=== PATIENT | male | born 1965 | race Caucasian/White ===

== ENCOUNTER → 2017-07-15 11:10 | Outpatient (CLI) | payer BC, SELFPAY ==
--- NOTE | 2017-07-15 12:53 | STRESSREP ---
Stress Test Report Treadmill EKG results: Resting EKG: Normal sinus rhythm, normal axis, normal intervals, no evidence of previous myocardial infarction. Treadmill EKG: The patient exercise according to a Bernardino protocol for 9 minutes and 0 seconds, achieving a maximum workload of 10.10 mets. Resting heart rate was initially 62 beats a minute and raven to maximum 151 beats a minute which represents 89% of the maximal age corrected heart rate. Resting blood pressure is 146/94, and raven to maximum 192/86. Test was terminated due to leg discomfort. During exercise the patient's heart rate increased as expected. The patient had no dynamic EKG changes to suggest ischemia. Patient had rare PVCs noted. No anginal symptoms noted. Conclusions: Normal adequate treadmill EKG. Negative for ischemia by EKG criteria. No anginal symptoms noted. Rare PVCs noted. Appropriate blood pressure response to exercise. Average exercise capacity for age. Test terminated due to leg discomfort. No complications.
== END ==
DX: R07.9 Chest pain, unspecified (principal)
CPT/HCPCS: 93017

== ENCOUNTER → 2017-08-30 06:44 | Outpatient (CLI) | payer BC, SELFPAY ==
[2017-08-30 07:24] LABS: Cholesterol 146 mg/dL (200); High Density Lipoprotein 31 mg/dL; Triglycerides 92 mg/dL; Very Low Density Lipoprotein 18 mg/dL (5-40)
== END ==
PROVIDERS: Visit Provider Family Medicine
DX: E78.5 Hyperlipidemia, unspecified (principal)
CPT/HCPCS: 36415; 80061

== ENCOUNTER → 2017-09-17 13:28 | Outpatient (CLI) | payer BC, SELFPAY ==
--- NOTE | 2017-09-17 13:33 | MRI_ITS ---
STUDY: MRI LEFT KNEE REASON FOR EXAM: Left knee pain status post injury. TECHNIQUE: Standardized fat and water weighted pulse sequences were obtained in all 3 orthogonal planes. COMPARISON: Radiographs 11/11/2016. FINDINGS: Normal medial meniscus. Normal hyaline cartilage of the medial femorotibial compartment. Normal medial femoral condyle and tibial plateau. There is thickening of the medial collateral ligament (proton-density coronal image 13) consistent with scarring. Normal distal semimembranosus, gracilis and semitendinosus tendons. There is a complex tear of the posterior horn of the lateral meniscus (proton-density sagittal images 28-30) including a radial component (T2 coronal image 8). Normal hyaline cartilage of the lateral femorotibial compartment. Normal lateral femoral condyle and tibial plateau. Normal proximal tibiofibular articulation. Normal lateral collateral (fibular) ligament. Normal popliteus tendon. Normal biceps femoris tendon. Normal anterior cruciate ligament (ACL). Normal posterior cruciate ligament (PCL). Normal congruent patellofemoral articulation. Normal hyaline cartilage of the patellofemoral compartment. Normal medial and lateral patellar retinaculum. Normal visualized quadriceps tendon. Normal patellar tendon. Normal Hoffa's fat pad. There is a small joint effusion. There is mild edema in the anterior subcutis adipose space. The otherwise visualized osseous structures are unremarkable. MRI/Lower Ext Joint Only (Routine) IMPRESSION: Lateral meniscal tear. Scarring of the medial collateral ligament. Small joint effusion. Electronically Signed: Ravin Wilson MD at 14:57 EDT Tel , Service support ,
== END ==
PROVIDERS: Visit Provider Orthopaedic Surgery
DX: S83.412A Sprain of medial collateral ligament of left knee, initial encounter (principal); S83.529A Sprain of posterior cruciate ligament of unspecified knee, initial encounter; X58.XXXA Exposure to other specified factors, initial encounter; Y93.9 Activity, unspecified; Y92.9 Unspecified place or not applicable; Y99.9 Unspecified external cause status
CPT/HCPCS: 73721

== ENCOUNTER → 2019-04-03 09:11 | Outpatient (CLI) | payer OTHER, SELFPAY ==
[2019-04-03 09:40] LABS: Absolute Lymphocyte Count 1.69 X10^3/uL (0.83-4.51); Absolute Neutrophil Count 2.4 X10^3/uL (2.0-7.7); Basophil# 0.08 X10^3/uL; Basophil% 1.6 % (0-1); Eosinophil# 0.36 X10^3/uL; Eosinophils% 7.2 % (0-5); Hematocrit 46.6 % (40-54); Hemoglobin 15.8 g/dL (13.0-16.5); Lymphocyte # 1.69 X10^3/ul (4.0); Lymphocyte % 33.6 % (19-41); Mean Corp Hgb Conc 33.9 g/dL (32-36); Mean Corpuscular Hgb 32.9 pg (27.0-32.0); Mean Corpuscular Volume 97.1 fL (80-94); Mean Platelet Vol. 10.2 fl (6.2-12.0); Monocyte# 0.51 X10^3/uL; Monocyte% 10.1 % (0-10); NRBC Flagged by Analyzer 0 % (0-5); Neutrophil # 2.37 X10^3/uL (2.7-7.7); Neutrophil % 47.1 % (47-70); Platelet Count 187 K/mm3 (150-450); RBC Distribution Width CV 12.4 % (11.6-14.6); RBC Distribution Width SD 44.1 fl (35.1-43.9)
[2019-04-03 10:10] LABS: ALB/GLOB Ratio 1.5 RATIO (0.9-2.4); AST(SGOT) 26 U/L (15-37); Alanine Aminotransfer ALT/SGPT 65 U/L (16-61); Albumin, Serum 4.3 g/dL (3.2-5.0); Alkaline Phosphatase 54 U/L (45-117); Anion Gap 9 (5-15); BUN 13 mg/dL (7-18); Calcium,Total 8.8 mg/dL (8.5-10.1); Chloride 108 mmol/L (98-107); Cholesterol 181 mg/dL (200); Creatinine, Serum 0.87 mg/dL (0.70-1.30); EST Glomerular Filtration Rate 98 mL/min (>60); Est Glom Filt Rate - Afr Amer 118 mL/min (>60); Globulin 2.9 g/dL (2.2-4.2); Glucose 95 mg/dL (74-106); High Density Lipoprotein 32 mg/dL; Protein, Total 7.2 g/dL (6.4-8.2); Sodium Level 141 mmol/L (136-145); Triglycerides 175 mg/dL; Uric Acid 5.4 mg/dL (3.5-7.2); Very Low Density Lipoprotein 35 mg/dL (5-40)
[2019-04-03 11:22] LABS: Color, Urine Yellow (Yellow); Glucose, Dipstick Normal (Normal); Ketone-Dipstick Negative (Negative); Leukocyte Esterase-Dipstick Negative /ul (Negative); Nitrite-Dipstick Negative (Negative); Occult Blood-Urine 25 /ul (Negative); Protein-Dipstick Negative (Negative); Urine Bilirubin Dipstick Negative (Negative); Urine Clarity Clear (Clear); Urine Urobilinogen Normal (Normal)
== END ==
PROVIDERS: Referring Provider Family Medicine; Visit Provider Family Medicine
DX: Z00.00 Encounter for general adult medical examination without abnormal findings (principal); I10 Essential (primary) hypertension; E78.5 Hyperlipidemia, unspecified; M10.9 Gout, unspecified; Z12.5 Encounter for screening for malignant neoplasm of prostate
CPT/HCPCS: 36415; 80053; 80061; 81002; 84153; 84550; 85025; G0103

== ENCOUNTER → 2019-04-20 08:44 | Outpatient (CLI) | payer OTHER, SELFPAY ==
--- NOTE | 2019-04-20 08:55 | RAD_ITS ---
STUDY: X-RAY - LUMBOSACRAL SPINE REASON FOR EXAM: Male, 53 years old. Pain radiating to the legs TECHNIQUE: 6 view(s) of the lumbosacral spine were obtained. COMPARISON: March 09, 2016 FINDINGS: Normal lumbar lordosis. There is no substantial scoliosis. There is normal alignment of the vertebrae. No evidence for acute fracture or subluxation. There is narrowing of the L4-5 disc space. There is endplate spurring of L3-4 and L4-5 On the lateral projection there appears to be spinal stenosis at L4-5 and L5-S1 due to facet arthropathy and shortened pedicles. Films obtained in flexion-extension demonstrate no evidence for gross instability Normal bilateral sacral ala, sacroiliac joints, and visualized sacrum. Normal visualized soft tissue structures. No significant change since prior exam RAD/L/S Spine Comp/w Bending Views IMPRESSION: No evidence for acute fracture or subluxation Degenerative changes and findings suggestive of spinal stenosis at L4-5 and L5-S1. CT or MRI would be helpful for further evaluation Electronically Signed: Andrew Oden MD at 21:27 EST , Service support ,
== END ==
PROVIDERS: Referring Provider Physician Assistant; Visit Provider Physician Assistant
DX: M54.5 Low back pain (principal)
CPT/HCPCS: 72114

== ENCOUNTER → 2020-07-29 | Outpatient (CLI) | payer OTHER, SELFPAY ==
--- NOTE | 2020-07-29 | COLBX_PTH ---
PATIENT: EVANGELINA DUONG LOC: [facility] U#:[id number] AGE/SX: 54/M ROOM: RE07/29/[address]: Dr. Vick Alcantara MD : 1965 BED: DIS: 07/29/2020 SPEC #: [id number] RECD: 07/29/20 14:51 STATUS: DAVID REMargie #: [id number] LUCIO: 07/29/20 00:[address]: Vick Alcantara DEPT: SURGICAL PATHOLOGY RECD BY: Flaco Rodriguez ENTERED: 07/30/20 07:56 SP TYPE: COLON BX OT DR: Andriy Cruz [facility] Tissues: Sigmoid colon biopsy Procedures: Surgery Specimen Level IV HEADER OPERATION: Colonoscopy with biopsy PRE-OP DIAGNOSIS: Rectal bleed TISSUE SUBMITTED: Proximal sigmoid MICROSCOPIC DIAGNOSIS Proximal sigmoid, biopsy: Tubular adenoma. SHIRIN:pascale 07/31/2020 MICROSCOPIC DESCRIPTION Slides are reviewed. GROSS DESCRIPTION Received in fixative is one container labeled with the patient's name and designated proximal sigmoid. The specimen consists of one irregular fragment of light brooks soft tissue that measures 0.4 x 0.3 x 0.2 cm. The specimen is totally submitted in one cassette. / SJ:pascale 07/30/20 TC:1 CPT: 63214
== END | disposition home or self-care (01) ==
PROVIDERS: Visit Provider Internal Medicine Gastroenterology
DX: K62.5 Hemorrhage of anus and rectum (principal)
CPT/HCPCS: 88305

== ENCOUNTER → 2022-07-29 | Outpatient (CLI) | payer OTHER, SELFPAY ==
[2022-07-29 16:57] LABS: Absolute Lymphocyte Count 1.75 X10^3/uL (0.83-4.51); Absolute Neutrophil Count 3.3 X10^3/uL (2.0-7.7); Basophil# 0.05 X10^3/uL; Basophil% 0.8 % (0-1); Eosinophil# 0.36 X10^3/uL; Hematocrit 47.7 % (40-54); Lymphocyte # 1.75 X10^3/ul (0.83-4.51); Mean Corp Hgb Conc 33.5 g/dL (32-36); Mean Corpuscular Hgb 32.7 pg (27.0-32.0); Mean Corpuscular Volume 97.3 fL (80-94); Mean Platelet Vol. 10.6 fl (6.2-12.0); Monocyte# 0.54 X10^3/uL; NRBC Flagged by Analyzer 0 % (0-5); Neutrophil # 3.31 X10^3/uL (2.7-7.7); Neutrophil % 54.9 % (47-70); Platelet Count 231 K/mm3 (150-450); RBC Distribution Width CV 12.7 % (11.6-14.6); RBC Distribution Width SD 44.9 fl (35.1-43.9)
[2022-07-29 17:24] LABS: ALB/GLOB Ratio 1.1 RATIO (0.9-2.4); AST(SGOT) 54 U/L (15-37); Alanine Aminotransfer ALT/SGPT 115 U/L (16-61); Albumin, Serum 4.1 g/dL (3.2-5.0); Alkaline Phosphatase 77 U/L (45-117); Anion Gap 6 (5-15); BUN 16 mg/dL (7-18); BUN/Creat Ratio 17.6 RATIO (10-20); Calcium,Total 9.5 mg/dL (8.5-10.1); Chloride 107 mmol/L (98-107); Creatinine, Serum 0.91 mg/dL (0.70-1.30); EST Glomerular Filtration Rate 92 mL/min (>60); Est Glom Filt Rate - Afr Amer 111 mL/min (>60); Globulin 3.6 g/dL (2.2-4.2); Glucose 108 mg/dL (74-106); PSA,Total - Annual Screen 0.63 ng/mL (0.00-4.00); Protein, Total 7.7 g/dL (6.4-8.2); Sodium Level 140 mmol/L (136-145); Thyroid Stim Hormone (TSH) 2.51 uIU/mL (0.358-3.74)
[2022-07-29 18:00] LABS: Hepatitis C Antibody Non-Reactive (Nonreactive); Vitamin D,25 Hydroxy 33.9 ng/mL
== END | disposition home or self-care (01) ==
PROVIDERS: PCP Family Medicine; Visit Provider Family Medicine Geriatric Medicine
DX: I10 Essential (primary) hypertension (principal); M10.9 Gout, unspecified; Z12.5 Encounter for screening for malignant neoplasm of prostate; Z13.89 Encounter for screening for other disorder
CPT/HCPCS: 36415; 80053; 82306; 84153; 84443; 84550; 85025; 86803; G0103

== ENCOUNTER → 2022-08-08 | Outpatient (CLI) | payer OTHER, SELFPAY ==
--- NOTE | 2022-08-08 08:54 | US_ITS ---
EXAM: US ABDOMEN LIMITED, RIGHT UPPER QUADRANT CLINICAL INDICATION: RUQ PAIN TECHNIQUE: Real-time ultrasound of the right upper quadrant with image documentation. This report was created using [employer] report generation technology. COMPARISON: None. FINDINGS: LIVER: Liver measures 18 cm. Increased echogenicity of the liver. No intrahepatic biliary ductal dilation. GALLBLADDER: Unremarkable. No shadowing gallstone. No gallbladder wall thickening is demonstrated. No pericholecystic fluid. Negative sonographic Martin''s sign. COMMON BILE DUCT: Unremarkable as visualized. The proximal common bile duct is within normal limits for the patient''s age. PANCREAS: Pancreas is obscured. RIGHT KIDNEY: Unremarkable. There is no hydronephrosis. No shadowing calculus. No focal lesion or perinephric collection is demonstrated. US/Abdomen Limited IMPRESSION: Enlarged fatty liver. Electronically Signed: Garett Johnson MD at 3:41 EDT ,
== END | disposition home or self-care (01) ==
LOC: US 08:53
PROVIDERS: PCP Family Medicine; Referring Provider Family Medicine Geriatric Medicine; Visit Provider Family Medicine Geriatric Medicine
DX: R74.8 Abnormal levels of other serum enzymes (principal)
CPT/HCPCS: 36415; 76705; 80074

== ENCOUNTER → 2022-09-01 | Outpatient (CLI) | payer OTHER, SELFPAY ==
--- NOTE | 2022-09-01 07:32 | US_ITS ---
STUDY: ABDOMINAL ULTRASOUND - ELASTOGRAPHY REASON FOR VISIT: Male, 56 years old. Fatty infiltration of the liver. TECHNIQUE: Liver stiffness measurements were obtained on a Hybrent RS 85 ultrasound machine using a CA 1-7 probe following the SRU guidelines. 3 measurements were obtained using a 2-D-SWE method. TheIQR/M was 21 % suggesting a quality data set. TECHNICAL QUALITY: Adequate. COMPARISON: Comparison is made with prior examination August 08, 2022. FINDINGS: Liver: Fatty infiltration of the liver. Borderline hepatomegaly. Median liver stiffness measured 11.9 kPa. Abdomen: There is no demonstrated mass lesion. US/Elastography Parenchyma/Organ IMPRESSION: Liver stiffness measures 11.9 kPa compatible with F2-F3 (Mild to moderate liver fibrosis) Metavir score. Electronically Signed: Arie George MD at 15:42 EDT ,
== END | disposition home or self-care (01) ==
LOC: US 07:30
PROVIDERS: PCP Family Medicine; Referring Provider Family Medicine Geriatric Medicine; Visit Provider Family Medicine Geriatric Medicine
DX: K76.0 Fatty (change of) liver, not elsewhere classified (principal)
CPT/HCPCS: 76981

== ENCOUNTER 2022-10-28 10:19 | Outpatient (RCR) | payer OTHER, SELFPAY | END 2022-11-06 23:59 | LOC: NS 10:19 | PROVIDERS: PCP Family Medicine Geriatric Medicine; Referring Provider Family Medicine Geriatric Medicine; Visit Provider Family Medicine Geriatric Medicine | DX: E66.01 Morbid (severe) obesity due to excess calories (principal); K76.0 Fatty (change of) liver, not elsewhere classified; Z68.32 Body mass index [BMI] 32.0-32.9, adult | CPT/HCPCS: 97802 ==

== ENCOUNTER → 2022-10-30 | Outpatient (CLI) | payer OTHER, SELFPAY ==
[2022-10-30 13:45] LABS: ALB/GLOB Ratio 1.3 RATIO (0.9-2.4); AST(SGOT) 34 U/L (15-37); Alanine Aminotransfer ALT/SGPT 38 U/L (16-61); Albumin, Serum 4.1 g/dL (3.2-5.0); Alkaline Phosphatase 78 U/L (45-117); Anion Gap 6 (5-15); BUN 16 mg/dL (7-18); BUN/Creat Ratio 19.4 RATIO (10-20); Calcium,Total 9.4 mg/dL (8.5-10.1); Chloride 106 mmol/L (98-107); Creatinine, Serum 0.82 mg/dL (0.70-1.30); EST Glomerular Filtration Rate 103 mL/min (>60); Est Glom Filt Rate - Afr Amer 124 mL/min (>60); Globulin 3.1 g/dL (2.2-4.2); Glucose 82 mg/dL (74-106); Potassium 4.4 mmol/L (3.5-5.1); Protein, Total 7.2 g/dL (6.4-8.2); Sodium Level 139 mmol/L (136-145)
== END | disposition home or self-care (01) ==
PROVIDERS: PCP Family Medicine Geriatric Medicine; Referring Provider Family Medicine Geriatric Medicine; Visit Provider Family Medicine Geriatric Medicine
DX: R74.8 Abnormal levels of other serum enzymes (principal)
CPT/HCPCS: 36415; 80053

== ENCOUNTER 2022-11-25 08:58 | Outpatient (RCR) | payer OTHER, SELFPAY | END 2022-12-07 23:59 | LOC: NS 08:58 | PROVIDERS: PCP Family Medicine Geriatric Medicine; Referring Provider Family Medicine Geriatric Medicine; Visit Provider Family Medicine Geriatric Medicine | DX: Z71.3 Dietary counseling and surveillance (principal); E66.01 Morbid (severe) obesity due to excess calories; K76.0 Fatty (change of) liver, not elsewhere classified; Z68.30 Body mass index [BMI] 30.0-30.9, adult | CPT/HCPCS: 97803 ==

== ENCOUNTER → 2023-02-24 | Outpatient (CLI) | payer OTHER, SELFPAY ==
[2023-02-24 12:57] LABS: Absolute Lymphocyte Count 1.81 X10^3/uL (0.83-4.51); Absolute Neutrophil Count 2.9 X10^3/uL (2.0-7.7); Basophil# 0.05 X10^3/uL; Basophil% 0.9 % (0-1); Eosinophil# 0.18 X10^3/uL; Eosinophils% 3.3 % (0-5); Hematocrit 45.5 % (40-54); Lymphocyte # 1.81 X10^3/ul (0.83-4.51); Lymphocyte % 33.4 % (19-41); Mean Corpuscular Hgb 32.3 pg (27.0-32.0); Mean Corpuscular Volume 97.8 fL (80-94); Mean Platelet Vol. 10.4 fl (6.2-12.0); Monocyte# 0.43 X10^3/uL; Monocyte% 7.9 % (0-10); NRBC Flagged by Analyzer 0 % (0-5); Neutrophil # 2.94 X10^3/uL (2.7-7.7); Neutrophil % 54.3 % (47-70); Platelet Count 201 K/mm3 (150-450); RBC Distribution Width CV 12.8 % (11.6-14.6); RBC Distribution Width SD 45.8 fl (35.1-43.9); Red Blood Count 4.65 M/mm3 (4.6-6.2); White Blood Count 5.4 K/mm3 (4.4-11.0)
[2023-02-24 13:37] LABS: ALB/GLOB Ratio 1.3 RATIO (0.9-2.4); AST(SGOT) 15 U/L (15-37); Alanine Aminotransfer ALT/SGPT 28 U/L (16-61); Albumin, Serum 4.2 g/dL (3.2-5.0); Alkaline Phosphatase 77 U/L (45-117); Anion Gap 6 (5-15); BUN 17 mg/dL (7-18); BUN/Creat Ratio 20.2 RATIO (10-20); Calcium,Total 9.5 mg/dL (8.5-10.1); Chloride 106 mmol/L (98-107); Creatinine, Serum 0.84 mg/dL (0.70-1.30); EST Glomerular Filtration Rate 100 mL/min (>60); Est Glom Filt Rate - Afr Amer 121 mL/min (>60); Globulin 3.2 g/dL (2.2-4.2); Glucose 92 mg/dL (74-106); Potassium 4.3 mmol/L (3.5-5.1); Protein, Total 7.4 g/dL (6.4-8.2); Sodium Level 139 mmol/L (136-145); Thyroid Stim Hormone (TSH) 1.51 uIU/mL (0.358-3.74); Uric Acid 5.5 mg/dL (3.5-7.2)
== END | disposition home or self-care (01) ==
LOC: POLAB3 11:25
PROVIDERS: PCP Family Medicine Geriatric Medicine; Visit Provider Family Medicine Geriatric Medicine
DX: I10 Essential (primary) hypertension (principal); M10.9 Gout, unspecified
CPT/HCPCS: 36415; 80053; 84443; 84550; 85025

== ENCOUNTER → 2023-08-03 | Outpatient (CLI) | payer OTHER, SELFPAY ==
[2023-08-03 12:41] LABS: Absolute Lymphocyte Count 1.48 X10^3/uL (0.83-4.51); Absolute Neutrophil Count 2.7 X10^3/uL (2.0-7.7); Basophil# 0.04 X10^3/uL; Basophil% 0.8 % (0-1); Eosinophil# 0.21 X10^3/uL; Eosinophils% 4.4 % (0-5); Hematocrit 42.4 % (40-54); Hemoglobin 14.8 g/dL (13.0-16.5); Lymphocyte # 1.48 X10^3/ul (0.83-4.51); Lymphocyte % 30.7 % (19-41); Mean Corp Hgb Conc 34.9 g/dL (32-36); Mean Corpuscular Hgb 33.5 pg (27.0-32.0); Mean Corpuscular Volume 95.9 fL (80-94); Mean Platelet Vol. 10.5 fl (6.2-12.0); Monocyte# 0.38 X10^3/uL; Monocyte% 7.9 % (0-10); NRBC Flagged by Analyzer 0 % (0-5); Platelet Count 180 K/mm3 (150-450); RBC Distribution Width CV 12.5 % (11.6-14.6); RBC Distribution Width SD 43.7 fl (35.1-43.9); Red Blood Count 4.42 M/mm3 (4.6-6.2); White Blood Count 4.8 K/mm3 (4.4-11.0)
[2023-08-03 13:15] LABS: ALB/GLOB Ratio 1.4 RATIO (0.9-2.4); AST(SGOT) 18 U/L (15-37); Alanine Aminotransfer ALT/SGPT 22 U/L (16-61); Albumin, Serum 4.2 g/dL (3.2-5.0); Alkaline Phosphatase 68 U/L (45-117); Anion Gap 8 (5-15); BUN 18 mg/dL (7-18); BUN/Creat Ratio 22.6 RATIO (10-20); Calcium,Total 9.1 mg/dL (8.5-10.1); Chloride 106 mmol/L (98-107); EST Glomerular Filtration Rate 106 mL/min (>60); Est Glom Filt Rate - Afr Amer 128 mL/min (>60); Globulin 2.9 g/dL (2.2-4.2); Glucose 95 mg/dL (74-106); PSA,Total - Annual Screen 0.37 ng/mL (0.00-4.00); Potassium 3.9 mmol/L (3.5-5.1); Protein, Total 7.1 g/dL (6.4-8.2); Sodium Level 139 mmol/L (136-145); Thyroid Stim Hormone (TSH) 0.98 uIU/mL (0.358-3.74)
== END | disposition home or self-care (01) ==
LOC: POLAB3 11:35
PROVIDERS: PCP Family Medicine Geriatric Medicine; Visit Provider Family Medicine Geriatric Medicine
DX: Z12.5 Encounter for screening for malignant neoplasm of prostate (principal); I10 Essential (primary) hypertension
CPT/HCPCS: 36415; 80053; 84153; 84443; 85025; G0103

== ENCOUNTER → 2023-08-19 | Outpatient (CLI) | payer OTHER, SELFPAY ==
--- NOTE | 2023-08-19 08:28 | US_ITS ---
STUDY: ABDOMINAL ULTRASOUND - RIGHT UPPER QUADRANT; ELASTOGRAPHY REASON FOR VISIT: Male, 57 years old. Fatty infiltration of the liver. TECHNIQUE: Ultrasound evaluation of the right upper quadrant was performed with real-time and static castro-scale imaging. Point quantification shear wave elastography was performed (Nebo). TECHNICAL QUALITY: Adequate. COMPARISON: Comparison is made with prior study of August 08, 2022. FINDINGS: Liver: The liver is enlarged and measures 19.7 cm. There is increased echogenicity consistent with fatty infiltration. The bile ducts are within normal limits. There is hepatic color flow. The direction of portal flow is hepatopetal. There is no demonstrated mass lesion. Median liver stiffness measured 9.8 kPa. Gallbladder: Normal distended gallbladder. The gallbladder wall measures 2.5 mm. There is a negative sonographic Martin''s sign. There is no pericholecystic fluid. There are no gallstones. Common Bile Duct (C.B.D.): The common bile duct measures 3.5 mm. Pancreas: Suboptimal visualization the pancreas due to overlying bowel gas. Right Kidney: Normal size of the right kidney. The right kidney measures 13 cm x 4.9 cm x 5.6 cm. Normal renal cortex. The right cortex measures 1.4 cm. There is no demonstrated renal mass or cyst. There is no right hydronephrosis. US/ABD Limited w/ Elastography IMPRESSION: 1. Liver stiffness measures 9.8 kPa compatible with F2-F3 (Mild to moderate liver fibrosis) Metavir score. Electronically Signed: Arie George MD at 10:20 EDT ,
== END | disposition home or self-care (01) ==
LOC: US 08:27
PROVIDERS: PCP Family Medicine Geriatric Medicine; Referring Provider Family Medicine Geriatric Medicine; Visit Provider Family Medicine Geriatric Medicine
DX: K76.0 Fatty (change of) liver, not elsewhere classified (principal)
CPT/HCPCS: 76705; 76981

== ENCOUNTER → 2024-08-18 | Outpatient (CLI) | payer OTHER, SELFPAY ==
[2024-08-18 12:52] LABS: Absolute Neutrophil Count 2.9 X10^3/uL (2.0-7.7); Basophil# 0.05 X10^3/uL; Basophil% 0.9 % (0-1); Eosinophil# 0.35 X10^3/uL; Eosinophils% 6.4 % (0-5); Hematocrit 44.9 % (40-54); Hemoglobin 15.5 g/dL (13.0-16.5); Lymphocyte % 31.2 % (19-41); Mean Corp Hgb Conc 34.5 g/dL (32-36); Mean Corpuscular Volume 95.7 fL (80-94); Mean Platelet Vol. 10.4 fl (6.2-12.0); Monocyte# 0.43 X10^3/uL; Monocyte% 7.9 % (0-10); NRBC Flagged by Analyzer 0 % (0-5); Neutrophil # 2.91 X10^3/uL (2.7-7.7); Neutrophil % 53.4 % (47-70); Platelet Count 174 K/mm3 (150-450); RBC Distribution Width CV 12.5 % (11.6-14.6); RBC Distribution Width SD 43.6 fl (35.1-43.9); Red Blood Count 4.69 M/mm3 (4.6-6.2); White Blood Count 5.5 K/mm3 (4.4-11.0)
[2024-08-18 13:34] LABS: ALB/GLOB Ratio 1.9 RATIO (0.9-2.4); AST(SGOT) 22 U/L (<=37); Alanine Aminotransfer ALT/SGPT 18 U/L (<=46); Albumin, Serum 4.6 g/dL (3.5-5.0); Alkaline Phosphatase 65 U/L (40-129); Anion Gap 12 (5-15); BUN 21 mg/dL (4-19); Calcium,Total 9.5 mg/dL (7.6-11.0); Carbon Dioxide 22.7 mmol/L (21.0-32.0); Chloride 104 mmol/L (98-108); Cholesterol 185 mg/dL (<=200); Creatinine, Serum 0.91 mg/dL (0.70-1.20); EST Glomerular Filtration Rate 98 (>60); Globulin 2.4 g/dL (2.2-4.2); Glucose 91 mg/dL (70-99); High Density Lipoprotein 51 mg/dL; Low Density Lipoprotein Calc. 116 mg/dL; PSA,Total - Annual Screen 0.37 ng/mL (0.02-4.00); Potassium 4.4 mmol/L (3.3-5.1); Protein, Total 7.1 g/dL (5.9-8.4); Sodium Level 139 mmol/L (133-145); Total Bilirubin 0.57 mg/dL (0.00-1.30); Triglycerides 94 mg/dL; Very Low Density Lipoprotein 19 mg/dL (5-40); cholesterol:hdl ratio screen 3.66
== END | disposition home or self-care (01) ==
PROVIDERS: PCP Family Medicine Geriatric Medicine; Referring Provider Family Medicine Geriatric Medicine; Visit Provider Family Medicine Geriatric Medicine
DX: I10 Essential (primary) hypertension (principal); M10.9 Gout, unspecified; E78.5 Hyperlipidemia, unspecified; Z12.5 Encounter for screening for malignant neoplasm of prostate
CPT/HCPCS: 36415; 80053; 80061; 84153; 84443; 84550; 85025; G0103

== ENCOUNTER 2024-11-02 12:23 | Emergency (ER) | payer OTHER, SELFPAY ==
[2024-11-02 12:24] VITALS: BP 170/99; PULSE 58; RESP 19; TEMP 35.8; O2SAT 100; BMI 28.0
--- NOTE | 2024-11-02 12:41 | RAD_ITS ---
PROCEDURE: HAND MIN 3 VIEWS 11/02/2024 REASON FOR EXAM: LACERATION TECHNIQUE: HAND MIN 3 VIEWS COMPARISON: None FINDINGS: There is a soft tissue defect at the distal phalanx of the index finger with no visible underlying fracture or radiopaque foreign body. 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 Mineralization is normal. There is no visible atherosclerosis. RAD/Hand Min 3 Views IMPRESSION: There is a soft tissue defect at the distal phalanx of the index finger with no visible underlying fracture or radiopaque foreign body. 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 Reading Location: [facility]
[2024-11-02] MEDS: Lidocaine 1% (20 ml mdv) 20 ML Vial INFILT (13:06)
[2024-11-02] MEDS: Diphth,Pertuss(Acell),Tet Vac 0.5 ML Vial IM (13:07)
[2024-11-02 13:23] VITALS: BP 130/90; PULSE 66; RESP 16; O2SAT 99
[2024-11-02 14:00] VITALS: BP 132/84; PULSE 67; RESP 16; O2SAT 99
--- NOTE | 2024-11-02 14:13 | EX.ED.UPPERE ---
HPI History of Present Illness Chief Complaint: Laceration Informant: patient Narrative Narrative: [id number] male left index finger injury while at work. He was drilling in a small metal plate when it spun on the drill bit injuring his left index finger. He is not on any blood thinners tetanus unknown. Bleeding controlled with pressure. Tetanus Immunization: Unknown [facility] Home Medications ?Medication ?Instructions ?Recorded ?Last Taken ?Type NK 11/02/24 Unknown History Allergy/AdvReac Type Severity Reaction Status Date / Time No Known Allergies Allergy Verified 04/20/19 08:39 Surgical History Previous back surgery h/o endolymphatic shunt surgery Social History Smoking Status: Never smoker ROS ROS ED Constitutional Constitutional ED: Denies fever(s) Cardiovascular Cardiovascular: Denies chest pain Respiratory/Chest Respiratory/Chest: Denies cough Gastrointestinal Gastrointestinal: Denies diarrhea or vomiting Musculoskeletal Musculoskeletal: Reports none and other Details: Left index finger injury Integumentary Denies rash or wounds Neurologic Neurologic: Denies weakness EXAM Physical Exam Const Vital Signs: 11/02/24 12:24 Temperature 96.4 F L Temperature Source Temporal Pulse Rate 58 L Respiratory Rate 19 H Blood Pressure 170/99 H Blood Pressure Mean 122 Pulse Ox 100 Oxygen Delivery Method Room Air Positive well nourished and well developed General Appearance ED: well developed HEENT normocephalic and atraumatic Eyes General Eye ED: Yes normal appearance of both eyes Neck full ROM Resp normal respiratory effort and normal air movement Cardio regular rate and regular rhythm GI soft to palpation Extremity full ROM Extremity Narrative: Left hand index finger: Volar aspect sliced avulsion at the middle phalanx with slight subcutaneous exposure, distal phalanx volar aspect has thick flap laceration circumferential of 4 cm that goes proximal to distal subcutaneous exposure there is no bone exposure. Full range of motion of the PIP and DIP joint with no tendon exposure noted. Bleeding controlled with pressure. No nailbed involvement. Neuro oriented x3 Skin no rashes or lesions noted and no wounds MDM MDM MDM Narrative Medical decision making narrative: Interventions / MDM: Differential diagnosis: Complex laceration left index finger. Tetanus vaccination. Diagnosis considered but do not suspect: No clinical tendon injury. Skin avulsion. My EKG interpretation: N/A Imaging independently reviewed and interpreted by myself: Left hand 3 view x-ray: Soft tissue injury of the index no bony involvement no radiopaque foreign body. External documents reviewed: N/A Test considered but not ordered:N/A ED course: Patient complex laceration flap lesion from proximal to distal. There is no tendon involvement clinically. X-ray obtained through nursing protocol interpreted myself shows no bony injury. Discussed repair with the patient however likely will aid as a Band-Aid as flap goes proximal to distal. After anesthesia and wound evaluation overall 1 full flap that does extend to the middle phalanx that covers the wound. The flap was repaired with suturing. Wound care discussed with the patient. He will be given follow-up with hand Dr. Ellis. Tetanus was updated. Procedure note: Verbal consent with the patient. Normal sterile conditions. 4 cc 1% lidocaine used for José Antonio metacarpal block bilaterally with good analgesic. Copious flushing with normal saline total 250 cc. Rubber band used for tourniquet of the finger. A total of 7, 5-0 nylon simple interrupted sutures used to repair the circumferential flap distally, ulnar aspect slight slip approximation max due to swelling of the flap. Additional 2, 5-0 nylon simple interrupted sutures repaired of the more middle phalanx flap. Xeroform dressing was placed over the wound. Rubber band was removed. Patient tolerated the procedure well. Images and information sent backline to Dr. Ellis. He will follow-up in the office on Wednesday. Discussed this with patient who will call for the appointment on Wednesday. Re-evaluation: stable Disposition discussed with patient/family/significant other: Patient Case discussed with consulting clinician: Hand surgery This note was generated with ASYM III dictation software. It may contain incorrect words, spelling, and punctuation that were not noted in checking the note before signing. Radiography Diagnostic Testing: Clinical Impression(s) from Imaging Studies Hand X-Ray 11/02/24 12:41 IMPRESSION: There is a soft tissue defect at the distal phalanx of the index finger with no visible underlying fracture or radiopaque foreign body. 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 Reading Location: [facility] Discharge Plan Triage Chief Complaint: Laceration ED Provider: Jony Coulter Dx/Rx/DC Orders Clinical Impression: Laceration of left index finger w/o foreign body w/o damage to nail, Tetanus toxoid vaccination administered at current visit Instructions: ED Laceration, Hand: All Closures Prescriptions: No Action NK Primary Care Provider: Ben Cameron Chi Referrals: Elgin Ellis MD [Med Staff - Active Staff] - 3-5 Days Ben Cameron Chi, MD [Primary Care Provider] - Activity Restrictions/Additional Instructions: X-ray negative. Your tetanus updated. Wound repaired in the emergency department. wound care as discussed. Follow-up with Dr. Ellis. Call office to be seen on Wednesday. Use ibuprofen or Advil total 600 mg every 6 hours for the next 2 days then as needed. Print Language: Yemeni Disposition Disposition: Home, Self Care Discharge Date/Time: 11/02/24 14:31
[2024-11-02 14:30] VITALS: BP 128/70; PULSE 66; RESP 16; TEMP 37.1; O2SAT 100
--- OUTSIDE RECORDS SUMMARY | 2024-11-02 21:45 | XMS RPT_ITS | CCD ---
Author Organization [facility] Care Team Providers Care Staff Nurse [facility] Resource Team Name Role Phone Garett Sarmiento Unavailable RAMESH BRENNER, DR JEAN BAPTISTE Primary Care Physician SUSANNA LARRY Attending Unavailable TAMIE QURESHI Primary Care UnavailSUSANNA Gomez Referring Unavailable TAMIE QURESHI Primary Care Unavailurmila BRADLEY MD, MICHI Fu Attending Unavailable RAMESH BRENNER., DR. JEAN BAPTISTE Primary Care Unavailab Jamee BRENNER, MICHI Fu Attending Unavailable RAMESH BRENNER., DR. JEAN BAPTISTE Primary Care Unavailab Zach BRENNER., DR. JEAN BAPTISTE Primary Care UnavailVITA Raymond Attending Unavailable VITA GARZA Referring Unavailable Rakesh BRENNER, Dr. Ben Verma Primary Care Provider Rakesh BRENNER, Dr. Ben Verma Attending Provider Rakesh BRENNER, Dr. Ben Verma Referring Provider Rakesh Ben Bayron Primary Care Unavailable Rakesh, Ben Chi Referring Unavailable Rakesh Ben Chi Attending Unavailable Vijay Latham Attending Unavailable Rakesh, Ben Chi Referring Unavailable Rakesh, Ben Chi Primary Care Unavailable Vijay Latham Attending Unavailable Rakesh, Ben Chi Referring Unavailable Rakesh, Ben Chi Primary Care Unavailable Dr. Jony Coulter DO Emergency Provider Vijay Latham Attending Provider Allergies Allergy Classification Reported Allergen(s) Allergy Type Date of Onset Reaction(s) Facility (1 source) Penicillins; Translations: [PENICILLINS] Propensity to adverse reactions to drug (disorder) 7 [facility] Repository Medications Current Medications Medication Drug Class(es) Dates Sig (Normalized) Sig (Original) azelastine hydrochloride 0.137 mg/actuat metered dose nasal spray (4 sources) Histamine-1 Receptor Antagonist Start: 03-31-2022 azelastine 137 mcg/inh (0.1%) nasal spray Dose = 2 spray(s), Intranasal, BID, PRN as needed for allergy symptoms, # 30 mL, 0 Refill(s) Start Date: 03/31/22 Status: Ordered Start: 03-25-2016 AZELASTINE HCL 0.1 % SOLN AZELASTINE HCL [id number] Garett Sarmiento [place] ([place]k) (2 sources) Start: 11-02-2024 [place] ([place]k) A ctive November 02, 2024 12:00am olmesartan medoxomil 20 mg oral tablet (1 source) Angiotensin 2 Receptor Silvia Start: 03-31-2022 olmesartan 20 mg ora l tablet Dose : 20 mg = 1 tab(s), Oral, qDay, # 30 tab(s), 0 Refill(s) Start Date: 03/31/22 Status: Ordered Completed/Discontinued Medications Medication Drug Class(es) Dates Sig (Normalized) Sig (Original) allopurinol 300 mg oral tablet (13 sources) Xanthine Oxidase Inhibitor Start: 04-20-2019 End: 11-02-2024 take 1 tablet by mouth once daily Allopurinol 300 mg tablet Discontinued 300 mg PO DAILY April 20, 2019 1:00am November 02, 2024 12:40pm gabapentin 300 mg oral capsule (5 sources) Anti-epileptic Agent Start: 03-25-2016 End: 11-11-2016 take 1 capsule by mouth three times daily GABAPENTIN 300 MG CAPS 1 po tid GABAPENTIN [id number] Garett Sarmiento hydroCHLOROthiazide 12.5 mg / olmesartan medoxomil 20 mg oral tablet (12 sources) Thiazide Diuretic, Angiotensin 2 Receptor Silvia Start: 04-20-2019 End: 11-02-2024 Olmesartan-Hydroc hlorothiazide 20-12.5 mg tablet Discontinued 1 {tbl} PO DAILY April 20, 2019 1:00am November 02, 2024 12:40pm Start: 04-20-2019 take 1 tablet by pablo once daily Olmesartan-Hydrochlorothiazide Active 1 TABLET PO DAILY April 20, 2019 1:00am methylprednisoLONE 4 mg oral tablet (5 sources) Corticosteroid Start: 03-25-2016 End: 11-11-2016 METHYLPREDNISOLONE 4 MG TBPK take as directed METHYLPREDNISOLONE [id number] Garett Sarmiento Start: 03-25-2016 METHYLPREDNISO LONE 4 MG TBPK take as directed METHYLPREDNISOLONE [id number] Garett Sarmiento naproxen 500 mg oral tablet (3 sources) Nonsteroidal Anti-inflammatory Drug Start: 03-25-2016 NAPROXEN 500 MG T ABS NAPROXEN [id number] Garett Sarmiento Problems Active Problems Problem Classification Problem Date Documented Date Episodic/Chronic Administrative/social admission (3 sources) Administrative reason for encounter; Translations: [Encounter for other administrative examinations] 02-11-2024 Episodic Essential hypertension (2 sources) Essential (primary) hypertension; Translations: [Hypertension, benign] Onset: 04-07-2022 Chronic Gout and other crystal arthropathies (1 source) Gout, unspecified; Translations: [Gout, unspecified cause, unspecified chronicity, unspecified site] Onset: 04-07-2022 Chronic Immunizations and screening for infectious disease (2 sources) Tetanus toxoid vaccination given; Translations: [Encounter for immunization] 11-02-2024 Episodic Open wounds of extremities (2 sources) Laceration of left index finger; Translations: [Laceration without foreign body of left index finger without damage to nail, initial encounter] 11-02-2024 Episodic Spondylosis; intervertebral disc disorders; other back problems (3 sources) Displacement of lumbar intervertebral disc without myelopathy; Translations: [Other intervertebral disc displacement, lumbar region] Onset: 03-25-2016 04-05-2016 Chronic Past or Other Problems Problem Classification Problem Date Documented Date Episodic/Chronic Other non-traumatic joint disorders (2 sources) Knee pain; Translations: [Pain in left knee] Onset: 11-11-2016 11-11-2016 Episodic Spondylosis; intervertebral disc disorders; other back problems (6 sources) Spinal stenosis of lumbar region; Translations: [Low back pain] Onset: 03-25-2016 04-05-2016 Episodic Sprains and strains (4 sources) Sprain of medial collateral ligament of left knee, initial encounter; Translations: [Sprain of posterior cruciate ligament of left knee, initial encounter] Onset: 11-11-2016 11-20-2016 Episodic Unclassified (12 sources) 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 Results Test Name Value Interpretation Reference Range Facility Absolute lymphocyte countOrd ered By: Ben Cameron on 08-18-2024 Lymphocytes Auto (Unsp spec) [#/Vol] 1.70 10*3/uL 0.83-4.51 [facility] Absolute neutrophil countOrd ered By: Ben Cameron on 08-18-2024 Neutrophils (Bld) [#/Vol] 2.9 10*3/uL 2.0-7.7 [facility] Anion gap in Serum or Plasma Ordered By: Ben Cameron on 08-18-2024 Anion gap [Moles/Vol] 12 mmol/L 5-15 [facility] Automated lymphocyte count a s percentage of total leukocytesOrdered By: Ben Cameron on 08-18-2024 Lymphocytes/100 WBC Auto (Unsp spec) 31.2 % 19-41 [facility] BUN/creatinine ratioOrdered By: Ben Cameron on 08-18-2024 Urea nitrogen/Creatinine [Mass ratio] 23.0 mg/mg High 10-20 [facility] Basophil percentageOrdered B y: Ben Rakesh on 08-18-2024 Basophils/100 WBC (Bld) 0.9 % 0-1 [facility] Bilirubin, totalOrdered By: Ben Cameron on 08-18-2024 Bilirubin [Mass/Vol] 0.57 mg/dL 0.00-1.30 [facility] CBC W/Diff, Automatedon 08-08 Absolute Lymph 1.70 X10 3/uL Normal 0.83-4.51 [facility] Comment on above: Performed By: #### L 500.4100, L501.9520, L501.9910, L501.1400, L100.0100, L500.4050 #### [facility] [address] [place], [address] Absolute Neut 2.9 X10 3/uL Normal 2.0-7.7 [facility] Comment on above: Performed By: #### L 500.4100, L501.9520, L501.9910, L501.1400, L100.0100, L500.4050 #### [facility] [address] [place], [address] Basophils/100 WBC (Bld) 0.9 % Normal 0-1 [facility] Comment on above: Performed By: #### L 500.4100, L501.9520, L501.9910, L501.1400, L100.0100, L500.4050 #### [facility] [address] [place], [address] Eosinophils/100 WBC (Bld) 6.4 % High 0-5 [facility] Comment on above: Performed By: #### L 500.4100, L501.9520, L501.9910, L501.1400, L100.0100, L500.4050 #### [facility] [address] [place], [address] Erythrocyte distribution width (RBC) [Ratio] 12.5 % Normal 11.6-14.6 [facility] Comment on above: Performed By: #### L 500.4100, L501.9520, L501.9910, L501.1400, L100.0100, L500.4050 #### [facility] [address] [place], [address] Hematocrit (Bld) [Volume fraction] 44.9 % Normal 40-54 [facility] Comment on above: Performed By: #### L 500.4100, L501.9520, L501.9910, L501.1400, L100.0100, L500.4050 #### [facility] [address] [place], [address] Hemoglobin (Bld) [Mass/Vol] 15.5 g/dL Normal 13.0-16.5 [facility] Comment on above: Performed By: #### L 500.4100, L501.9520, L501.9910, L501.1400, L100.0100, L500.4050 #### [facility] [address] [place], [address] IG% 0.200 Normal 0.0-0.9 [facility] Comment on above: Result Comment: IG% - Immature Granulocytes (promyelocytes, myelocytes and metamyelocytes) > 1% indicates that a LEFT SHIFT is Present. Performed By: #### L 500.4100, L501.9520, L501.9910, L501.1400, L100.0100, L500.4050 #### [facility] [address] [place], [address] Lymphocytes/100 WBC (Bld) 31.2 % Normal 19-41 [facility] Comment on above: Performed By: #### L 500.4100, L501.9520, L501.9910, L501.1400, L100.0100, L500.4050 #### [facility] [address] [place], [address] MCH (RBC) [Entitic mass] 33.0 pg High 27.0-32.0 [facility] Comment on above: Performed By: #### L 500.4100, L501.9520, L501.9910, L501.1400, L100.0100, L500.4050 #### [facility] [address] [place], [address] MCHC (RBC) [Mass/Vol] 34.5 g/dL Normal 32-36 [facility] Comment on above: Performed By: #### L 500.4100, L501.9520, L501.9910, L501.1400, L100.0100, L500.4050 #### [facility] [address] [place], [address] MCV (RBC) [Entitic vol] 95.7 fL High 80-94 [facility] Comment on above: Performed By: #### L 500.4100, L501.9520, L501.9910, L501.1400, L100.0100, L500.4050 #### [facility] [address] [place], [address] Monocytes/100 WBC (Bld) 7.9 % Normal 0-10 [facility] Comment on above: Performed By: #### L 500.4100, L501.9520, L501.9910, L501.1400, L100.0100, L500.4050 #### [facility] [address] [place], [address] Neutrophils/100 WBC (Bld) 53.4 % Normal 47-70 [facility] Comment on above: Performed By: #### L 500.4100, L501.9520, L501.9910, L501.1400, L100.0100, L500.4050 #### [facility] [address] [place], [address] Nucleated RBC (Bld) [#/Vol] 0 10*3/uL Normal 0-5 [facility] Comment on above: Performed By: #### L 500.4100, L501.9520, L501.9910, L501.1400, L100.0100, L500.4050 #### [facility] [address] [place], [address] Platelet mean volume (Bld) [Entitic vol] 10.4 fL Normal 6.2-12.0 [facility] Comment on above: Performed By: #### L 500.4100, L501.9520, L501.9910, L501.1400, L100.0100, L500.4050 #### [facility] [address] [place], [address] Platelets (Bld) [#/Vol] 174 10*3/uL Normal 150-450 [facility] Comment on above: Performed By: #### L 500.4100, L501.9520, L501.9910, L501.1400, L100.0100, L500.4050 #### [facility] [address] [place], [address] RBC (Bld) [#/Vol] 4.69 10*6/uL Normal 4.6-6.2 [facility] Comment on above: Performed By: #### L 500.4100, L501.9520, L501.9910, L501.1400, L100.0100, L500.4050 #### [facility] [address] [place], [address] RDW SD 43.6 fl Normal 35.1-43.9 [facility] Comment on above: Performed By: #### L 500.4100, L501.9520, L501.9910, L501.1400, L100.0100, L500.4050 #### [facility] [address] [place], [address] WBC (Bld) [#/Vol] 5.5 10*3/uL Normal 4.4-11.0 [facility] Comment on above: Performed By: #### L 500.4100, L501.9520, L501.9910, L501.1400, L100.0100, L500.4050 #### [facility] [address] [place], [address] Calculated very low density lipoprotein (VLDL) cholesterol measurementOrdered By: Ben Cameron on 08-18-2024 Calculated very low density lipoprotein (VLDL) cholesterol measurement 19 mg/dL 5-40 [facility] VLDL Cholesterol 19 mg/dL 5-40 [facility] Carbon dioxide, total [Moles /volume] in Central venous bloodOrdered By: Ben Cameron on 08-18-2024 CO2 [Moles/Vol] 22.7 mmol/L 21.0-32.0 [facility] Chloride assayOrdered By: Esdras Cameron on 08-18-2024 Chloride [Moles/Vol] 104 mmol/L 98-108 [facility] Comprehensive Metabolic Prof ilon 08-18-2024 Albumin [Mass/Vol] 4.6 g/dL Normal 3.5-5.0 [facility] Comment on above: Performed By: #### L 500.4100, L501.9520, L501.9910, L501.1400, L100.0100, L500.4050 #### [facility] [address] [place], [address] Albumin/Globulin [Mass ratio] 1.9 {ratio} Normal 0.9-2.4 [facility] Comment on above: Performed By: #### L 500.4100, L501.9520, L501.9910, L501.1400, L100.0100, L500.4050 #### [facility] [address] [place], [address] ALK PHOS 65 U/L Normal 40-129 [facility] Comment on above: Performed By: #### L 500.4100, L501.9520, L501.9910, L501.1400, L100.0100, L500.4050 #### [facility] [address] [place], [address] ALT [Catalytic activity/Vol] 18 U/L Normal <=46 [facility] Comment on above: Performed By: #### L 500.4100, L501.9520, L501.9910, L501.1400, L100.0100, L500.4050 #### [facility] [address] [place], [address] AST [Catalytic activity/Vol] 22 U/L Normal <=37 [facility] Comment on above: Performed By: #### L 500.4100, L501.9520, L501.9910, L501.1400, L100.0100, L500.4050 #### [facility] [address] [place], [address] Bilirubin [Mass/Vol] 0.57 mg/dL Normal 0.00-1.30 [facility] Comment on above: Performed By: #### L 500.4100, L501.9520, L501.9910, L501.1400, L100.0100, L500.4050 #### [facility] [address] [place], [address] BUN/CRE 23.0 RATIO High 10-20 [facility] Comment on above: Performed By: #### L 500.4100, L501.9520, L501.9910, L501.1400, L100.0100, L500.4050 #### [facility] [address] [place], [address] Calcium [Mass/Vol] 9.5 mg/dL Normal 7.6-11.0 [facility] Comment on above: Performed By: #### L 500.4100, L501.9520, L501.9910, L501.1400, L100.0100, L500.4050 #### [facility] [address] [place], [address] Chloride [Moles/Vol] 104 mmol/L Normal 98-108 [facility] Comment on above: Performed By: #### L 500.4100, L501.9520, L501.9910, L501.1400, L100.0100, L500.4050 #### [facility] [address] [place], [address] CO2 [Moles/Vol] 22.7 mmol/L Normal 21.0-32.0 [facility] Comment on above: Performed By: #### L 500.4100, L501.9520, L501.9910, L501.1400, L100.0100, L500.4050 #### [facility] [address] [place], [address] Creatinine [Mass/Vol] 0.91 mg/dL Normal 0.70-1.20 [facility] Comment on above: Performed By: #### L 500.4100, L501.9520, L501.9910, L501.1400, L100.0100, L500.4050 #### [facility] [address] [place], [address] GAP 12 Normal 5-15 [facility] Comment on above: Performed By: #### L 500.4100, L501.9520, L501.9910, L501.1400, L100.0100, L500.4050 #### [facility] [address] [place], [address] GFR/1.73 sq M.predicted among non-blacks MDRD (S/P/Bld) [Vol rate/Area] 98 mL/min/{1.73_m2} Normal >60 [facility] Comment on above: Result Comment: mL/m in/1.73m2 CKD-EPI Creatinine Equation (2020) Performed By: #### L 500.4100, L501.9520, L501.9910, L501.1400, L100.0100, L500.4050 #### [facility] [address] [place], [address] Globulin (S) [Mass/Vol] 2.4 g/dL Normal 2.2-4.2 [facility] Comment on above: Performed By: #### L 500.4100, L501.9520, L501.9910, L501.1400, L100.0100, L500.4050 #### [facility] [address] [place], [address] Glucose [Mass/Vol] 91 mg/dL Normal 70-99 [facility] Comment on above: Performed By: #### L 500.4100, L501.9520, L501.9910, L501.1400, L100.0100, L500.4050 #### [facility] [address] [place], [address] Potassium [Moles/Vol] 4.4 mmol/L Normal 3.3-5.1 [facility] Comment on above: Performed By: #### L 500.4100, L501.9520, L501.9910, L501.1400, L100.0100, L500.4050 #### [facility] [address] [place], [address] Sodium [Moles/Vol] 139 mmol/L Normal 133-145 [facility] Comment on above: Performed By: #### L 500.4100, L501.9520, L501.9910, L501.1400, L100.0100, L500.4050 #### [facility] [address] [place], [address] T PROT 7.1 g/dL Normal 5.9-8.4 [facility] Comment on above: Performed By: #### L 500.4100, L501.9520, L501.9910, L501.1400, L100.0100, L500.4050 #### [facility] [address] [place], [address] Urea nitrogen [Mass/Vol] 21 mg/dL High 4-19 [facility] Comment on above: Performed By: #### L 500.4100, L501.9520, L501.9910, L501.1400, L100.0100, L500.4050 #### [facility] [address] [place], [address] Eosinophil percentageOrdered By: Ben Cameron on 08-18-2024 Eosinophils/100 WBC (Bld) 6.4 % High 0-5 [facility] Erythrocyte distribution wid th (RBC) [Ratio]Ordered By: Ben Cameron on 08-18-2024 Erythrocyte distribution width (RBC) [Entitic vol] 43.6 fL 35.1-43.9 [facility] Erythrocyte distribution wid th ratioOrdered By: Ben Cameron on 08-18-2024 Erythrocyte distribution width (RBC) [Ratio] 12.5 % 11.6-14.6 [facility] Erythrocyte distribution wid th standard deviationOrdered By: Ben Cameron on 08-18-2024 Erythrocyte distribution width (RBC) [Ratio] 43.6 fl 35.1-43.9 [facility] GFR/1.73 sq M.predicted krystyna g non-blacks MDRD (S/P/Bld) [Vol rate/Area]Ordered By: Ben Cameron on 08-18-2024 Estimated GFR (MDRD) Non-Af Amer 98 >60 [facility] Comment on above: mL/min/1.73m2 CKD-EP I Creatinine Equation (2020) Glomerular filtration rate ( GFR) estimation/1.73 sq m using serum, plasma, or whole bOrdered By: Ben Cameron on 08-18-2024 GFR/1.73 sq M.predicted among non-blacks MDRD (S/P/Bld) [Vol rate/Area] 98 mL/min/{1.73_m2} >60 [facility] Comment on above: mL/min/1.73m2 CKD-EP I Creatinine Equation (2020) Hematocrit Auto (Bld) [Volum e fraction]Ordered By: Ben Cameron 08-18-2024 Hematocrit (Bld) [Volume fraction] 44.9 % 40-54 [facility] Hemoglobin measurementOrdere d By: Ben Cameron 08-18-2024 Hemoglobin (Bld) [Mass/Vol] 15.5 g/dL 13.0-16.5 [facility] Immature granulocytes/100 WB C Auto (Bld)Ordered By: Ben Cameron 08-18-2024 Immature granulocytes/100 WBC (Bld) 0.200 % 0.0-0.9 [facility] Comment on above: IG% - Immature Granu locytes (promyelocytes, myelocytes and metamyelocytes) > 1% indicates that a LEFT SHIFT is Present. LDL calc ser/plasOrdered By: Ben Cameron on 08-18-2024 Cholesterol in LDL [Mass/Vol] 116 mg/dL [facility] Comment on above: Lifojhjqvm=295-583 m g/dL & Higher Cnsf=291 mg/dL or greater LDL Cholesterol, Calculated 116 mg/dL [facility] Comment on above: Wdlfhcegne=999-291 m g/dL & Higher Tfrw=458 mg/dL or greater Laboratory - Chemistry and C hemistry - challengeOrdered By: Ben Cameron on 08-18-2024 AST [Catalytic activity/Vol] 22 U/L <38 [facility] Lipid Profileon 08-18-2024 CHOL:HDL 3.66 Normal [facility] Comment on above: Performed By: #### L 500.4100, L501.9520, L501.9910, L501.1400, L100.0100, L500.4050 #### [facility] [address] [place], [address] Cholesterol [Mass/Vol] 185 mg/dL Normal <=200 [facility] Comment on above: Result Comment: Chol esterol level, Desirable <200 mg/dL Borderline high cholesterol 200-239 mg/dL High cholesterol >=240 mg/dL Recommendations of the NCEP Adult Treatment Panel for the following risk-cutoff thresholds for the [place] population. Performed By: #### L 500.4100, L501.9520, L501.9910, L501.1400, L100.0100, L500.4050 #### [facility] [address] [place], [address] Cholesterol in HDL [Mass/Vol] 51 mg/dL Normal [facility] Comment on above: Result Comment: Solange onal Cholesterol Education Program (NCEP) guidelines: <40 mg/dL: Low HDL-cholesterol (major risk factor for CHD) >= 60 mg/dL: High HDL-cholesterol (negative risk factor for CHD) HDL-cholesterol is affected by a number of factors, e.g. smoking, exercise, hormones, sex and age. Performed By: #### L 500.4100, L501.9520, L501.9910, L501.1400, L100.0100, L500.4050 #### [facility] [address] [place], [address] Cholesterol in LDL [Mass/Vol] 116 mg/dL Normal [facility] Comment on above: Result Comment: Bord mkcslg=293-026 mg/dL Higher Irod=428 mg/dL or greater Performed By: #### L 500.4100, L501.9520, L501.9910, L501.1400, L100.0100, L500.4050 #### [facility] [address] [place], [address] Cholesterol in VLDL [Mass/Vol] 19 mg/dL Normal 5-40 [facility] Comment on above: Performed By: #### L 500.4100, L501.9520, L501.9910, L501.1400, L100.0100, L500.4050 #### [facility] [address] [place], [address] Triglyceride [Mass/Vol] 94 mg/dL Normal [facility] Comment on above: Result Comment: The drugs N-Acetylcysteine and Metamizole may falsely depress this assay. Normal range: <150 mg/dL Borderline High: 150-199 mg/dL High: 200-499 mg/dL Very High: >500 mg/dL Performed By: #### L 500.4100, L501.9520, L501.9910, L501.1400, L100.0100, L500.4050 #### [facility] [facility] [address] [place], [address] Lymphocytes Auto (Unsp spec) [#/Vol]Ordered By: Ben Cameron on 08-18-2024 Lymphocytes (Bld) [#/Vol] 1.70 10*3/uL 0.83-4.51 [facility] Lymphocytes/100 WBC Auto (Un sp spec)Ordered By: Ben Cameron on 08-18-2024 Lymphocytes/100 WBC (Bld) 31.2 % 19-41 [facility] MCV (mean corpuscular volume ) determinationOrdered By: Ben Cameron on 08-18-2024 MCV (RBC) [Entitic vol] 95.7 fL High 80-94 [facility] [place] Mean corpuscular hemoglobin (MCH) determinationOrdered By: Ben Cameron on 08-18-2024 MCH (RBC) [Entitic mass] 33.0 pg High 27.0-32.0 [facility] Mean corpuscular hemoglobin concentration (MCHC) determinationOrdered By: Ben Cameron on 08-18-2024 MCHC (RBC) [Mass/Vol] 34.5 g/dL 32-36 [facility] Mean platelet volume determi nationOrdered By: Ben Cameron on 08-18-2024 Platelet mean volume (Bld) [Entitic vol] 10.4 fL 6.2-12.0 [facility] Monocyte percentageOrdered B y: Ben Cameron on 08-18-2024 Monocytes/100 WBC (Bld) 7.9 % 0-10 [facility] [place] Neutrophil percentageOrdered By: [facility] on 08-18-2024 Neutrophils/100 WBC (Bld) 53.4 % 47-70 [facility] Nucleated red blood cell per centageOrdered By: Ben Cameron on 08-18-2024 Nucleated RBC/100 WBC (Bld) [Ratio] 0 % 0-5 [facility] PSA, total screeningOrdered By: Ben Cameron on 08-18-2024 Prostate Specific Antigen Screen 0.37 ng/mL 0.02-4.00 [facility] Comment on above: This test was perfor med using the [employer] tPSA method. Measured values of a patient sample can vary depending on the testing procedure used. PSA values determined on patient samples by different testing procedures cannot be used interchangeably. If there is a change in PSA assays while monitoring therapy, sequential testing should be performed to confirm baseline values. PSA,Total - Annual Screenon 08-18-2024 PSA,TOT SCREEN 0.37 ng/mL Normal 0.02-4.00 [facility] Comment on above: Result Comment: This test was performed using the [employer] tPSA method. Measured values of a patient??sample can vary depending on the testing procedure used. PSA values determined on patient samples by different testing procedures cannot be used interchangeably. If there is a change in PSA assays while monitoring therapy, sequential testing should be performed to confirm baseline values. Performed By: #### L 500.4100, L501.9520, L501.9910, L501.1400, L100.0100, L500.4050 #### [facility] [address] [place], [address] Platelet countOrdered By: Esdras Cameron on 08-18-2024 Platelets (Bld) [#/Vol] 174 10*3/uL 150-450 [facility] Potassium (Unsp spec) [Mass/ Vol]Ordered By: Ben Cameron on 08-18-2024 Potassium [Moles/Vol] 4.4 mmol/L 3.3-5.1 [facility] Potassium measurement (mass/ volume)Ordered By: Ben Cameron on 08-18-2024 Potassium (Unsp spec) [Mass/Vol] 4.4 mmol/L 3.3-5.1 [facility] RBC Auto (Bld) [#/Vol]Ordere d By: Ben Cameron on 08-18-2024 RBC (Bld) [#/Vol] 4.69 10*6/uL 4.6-6.2 [facility] Screening total cholesterol/ high density lipoprotein (HDL) cholesterol ratioOrdered By: Ben Cameron on 08-18-2024 Cholesterol.total/Lynn sterol in HDL [Mass ratio] 3.66 {ratio} [facility] Serum creatinine measurement (mass/volume)Ordered By: Ben Cameron on 08-18-2024 Creatinine [Mass/Vol] 0.91 mg/dL 0.70-1.20 [facility] Serum globulin measurementOr dered By: Ben Cameron 08-18-2024 Globulin (S) [Mass/Vol] 2.4 g/dL 2.2-4.2 [facility] [place] Serum glucose measurement (m ass/volume)Ordered By: Ben Cameron on 08-18-2024 Glucose [Mass/Vol] 91 mg/dL 70-99 [facility] Serum or plasma alanine barrett otransferase (ALT) measurementOrdered By: Ben Cameron 08-18-2024 ALT [Catalytic activity/Vol] 18 U/L <47 [facility] Serum or plasma albumin shemar urement (mass/volume)Ordered By: Ben Cameron on 08-18-2024 Albumin [Mass/Vol] 4.6 g/dL 3.5-5.0 [facility] Serum or plasma albumin/glob ulin mass ratioOrdered By: Ben Cameron 08-18-2024 Albumin/Globulin [Mass ratio] 1.9 {ratio} 0.9-2.4 [facility] Serum or plasma alkaline paulina sphatase measurementOrdered By: Ben Cameron 08-18-2024 ALP [Catalytic activity/Vol] 65 U/L 40-129 [facility] Serum or plasma calcium shemar urement (mass/volume)Ordered By: Ben Rakesh 08-18-2024 Calcium [Mass/Vol] 9.5 mg/dL 7.6-11.0 [facility] Serum or plasma cholesterol in HDL measurement (mass/volume)Ordered By: Ben Cameron 08-18-2024 Cholesterol in HDL [Mass/Vol] 51 mg/dL >40 [facility] Comment on above: National Cholesterol Education Program (NCEP) guidelines:<40 mg/dL: Low HDL-cholesterol (major risk factor for CHD)>= 60 mg/dL: High HDL-cholesterol (negative risk factor for CHD)HDL-cholesterol is affected by a number of factors, e.g. smoking, exercise, hormones, sex and age. Serum or plasma cholesterol measurement (mass/volume)Ordered By: Ben Rakesh 08-18-2024 Cholesterol [Mass/Vol] 185 mg/dL <201 [facility] Comment on above: Cholesterol level, D esirable <200 mg/dLBorderline high cholesterol 200-239 mg/dLHigh cholesterol >=240 mg/dLRecommendations of the NCEP Adult Treatment Panel for the following risk-cutoff thresholds for the [place] population. Serum or plasma urea nitroge n measurement (mass/volume)Ordered By: Ben Rakesh 08-18-2024 Urea nitrogen [Mass/Vol] 21 mg/dL High 4-19 [facility] Serum or plasma uric acid me asurement (mass/volume)Ordered By: Ben Rakesh 08-18-2024 Urate [Mass/Vol] 6.0 mg/dL 3.5-7.2 [facility] Comment on above: The drugs N-Acetylcy steine and Metamizole may falsely depress this assay. Sodium levelOrdered By: Ben Rakesh 08-18-2024 Sodium [Moles/Vol] 139 mmol/L 133-145 [facility] TSH DL <= 0.005 mIU/L QnOrde red By: Ben Cameron on 08-18-2024 Thyroid Stimulating Hormone (TSH) 1.340 uIU/mL 0.300-4.200 [facility] TSH Qn 1.340 uIU/mL 0.300-4.200 [facility] Thyroid Stim Hormone (TSH)on 08-18-2024 TSH 1.340 uIU/mL Normal 0.300-4.200 [facility] Comment on above: Performed By: #### L 500.4100, L501.9520, L501.9910, L501.1400, L100.0100, L500.4050 #### [facility] [address] [place], [place], [id number] Total proteinOrdered By: Ben Cameron on 08-18-2024 Protein [Mass/Vol] 7.1 g/dL 5.9-8.4 [facility] Triglycerides measurementOrd ered By: Ben Cameron on 08-18-2024 Triglyceride [Mass/Vol] 94 mg/dL <199 [facility] Comment on above: The drugs N-Acetylcy steine and Metamizole may falsely depress this assay. Normal range: <150 mg/dLBorderline High: 150-199 mg/dLHigh: 200-499 mg/dLVery High: >500 mg/dL Uric Acidon 08-18-2024 URIC 6.0 mg/dL Normal 3.5-7.2 [facility] Comment on above: Result Comment: The drugs N-Acetylcysteine and Metamizole may falsely depress this assay. Performed By: #### L 500.4100, L501.9520, L501.9910, L501.1400, L100.0100, L500.4050 #### [facility] [address] 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 Allergies No Known Allergies Allergy (Verified 04/20/19 08:39) Office Procedures [facility] Billing Sheet Testing DOT Physical Exam: Yes Drug Screen Collection Only: Yes 02/11/24 1026 Date Vijay PAYNE Cosigner Signature: Date (if applicable) CC: Normal [facility] Urgent Care Visit Reporton 1 Urgent Care Visit Report [facility] [address], [address] [place] [address] OFFICE VISIT Date of Service: 02/11/24 MR#: [id number] Acct: [id number] Name: EVANGELINA ANDREW Rep #: [id number] : 1965 Provider: KERRY Puri Age/Sex: 58/M Location[place] [facility] Status: Signed Intake Vital Signs 11/25/22 09:30 Height 5 ft 9 in Intake Visit Reasons: PE DOT PHYSICAL/ PORTS Allergies No Known Allergies Allergy (Verified 04/20/19 08:39) PFSH Surgical History (Updated 12/03/21 @ 18:29 by Renata Aguilar) h/o endolymphatic shunt surgery HPI HPI Details: EVANGELINA ANDREW, is a 58 M who presents to the office today for DOT physical. Please see corresponding scanned documents with today's date. Office Procedures Physical Exam Coding PE Coding DOT PE: Yes Coding Level of Care Code No Charge Diagnoses Encounter for examination required by Department of Transportation (DOT) Z02.89 Assessment and Plan Assessment and Plan (1) Encounter for examination required by Department of Transportation (DOT): Status: Acute 02/11/24 0945 Date Vijay Elliott Signature: Date (if applicable) CC: Normal [facility] Absolute lymphocyte countOrd ered By: Ben Cameron on 08-03-2023 Lymphocytes Auto (Unsp spec) [#/Vol] 1.48 10*3/uL 0.83-4.51 [facility] Automated lymphocyte count a s percentage of total leukocytesOrdered By: Ben Cameron on 08-03-2023 Lymphocytes/100 WBC Auto (Unsp spec) 30.7 % 19-41 [facility] Basophil percentageOrdered B y: Ben Cameron on 08-03-2023 Basophils/100 WBC (Bld) 0.8 % 0-1 [facility] Bilirubin [Mass/Vol] 1.10 mg/dL 0.20-1.00 [facility] Comment on above: For patients on eltr ombopag therapy, use of Dimension [place] TBIL is not recommended. Chloride [Moles/Vol] 106 mmol/L 98-107 [facility] Eosinophils/100 WBC (Bld) 4.4 % 0-5 [facility] Glucose [Mass/Vol] 95 mg/dL 74-106 [facility] Hemoglobin (Bld) [Mass/Vol] 14.8 g/dL 13.0-16.5 [facility] Monocytes/100 WBC (Bld) 7.9 % 0-10 [facility] Neutrophils (Bld) [#/Vol] 2.7 10*3/uL 2.0-7.7 [facility] Neutrophils/100 WBC (Bld) 56.0 % 47-70 [facility] Potassium [Moles/Vol] 3.9 mmol/L 3.5-5.1 [facility] Protein [Mass/Vol] 7.1 g/dL 6.4-8.2 [facility] Sodium [Moles/Vol] 139 mmol/L 136-145 [facility] WBC (Bld) [#/Vol] 4.8 10*3/uL 4.4-11.0 [facility] Determination of erythrocyte mean corpuscular volume (MCV)Ordered By: Ben Cameron on 08-03-2023 MCV (RBC) [Entitic vol] 95.9 fL 80-94 [facility] Erythrocyte distribution wid th ratioOrdered By: Ben Cameron on 08-03-2023 Erythrocyte distribution width (RBC) [Ratio] 12.5 % 11.6-14.6 [facility] Erythrocyte distribution wid th standard deviationOrdered By: Ben Cameron on 08-03-2023 Erythrocyte distribution width (RBC) [Entitic vol] 43.7 fL 35.1-43.9 [facility] Hematocrit Auto (Bld) [Volum e fraction]Ordered By: Ben Rakesh on 08-03-2023 Hematocrit (Bld) [Volume fraction] 42.4 % 40-54 [facility] Immature granulocytes/100 WB C Auto (Bld)Ordered By: Ben Cameron on 08-03-2023 Immature granulocytes/100 WBC (Bld) 0.200 % 0.0-0.9 [facility] Comment on above: IG% - Immature Granu locytes (promyelocytes, myelocytes and metamyelocytes) > 1% indicates that a LEFT SHIFT is Present. Laboratory - Chemistry and C hemistry - challengeOrdered By: Ben Cameron on 08-03-2023 Albumin/Globulin [Mass ratio] 1.4 {ratio} 0.9-2.4 [facility] ALP [Catalytic activity/Vol] 68 U/L 45-117 [facility] ALT [Catalytic activity/Vol] 22 U/L 16-61 [facility] CO2 [Moles/Vol] 25.0 mmol/L 21.0-32.0 [facility] Globulin (S) [Mass/Vol] 2.9 g/dL 2.2-4.2 [facility] Urea nitrogen/Creatinine [Mass ratio] 22.6 mg/mg 10-20 [facility] - Hematology and Cell countsOrdered By: Ben Cameron on 08-03-2023 MCH (RBC) [Entitic mass] 33.5 pg 27.0-32.0 [facility] MCHC (RBC) [Mass/Vol] 34.9 g/dL 32-36 [facility] Nucleated RBC/100 WBC (Bld) [Ratio] 0 % 0-5 [facility] Platelet mean volume (Bld) [Entitic vol] 10.5 fL 6.2-12.0 [facility] Platelets (Bld) [#/Vol] 180 10*3/uL 150-450 [facility] No Panel InformationOrdered By: Ben Cameron on 08-03-2023 Estimated GFR (MDRD) Amer 128 mL/min >60 [facility] Comment on above: GFR Calc Estimated GFR (MDRD) Non-Af Amer 106 mL/min >60 [facility] Comment on above: Non- GFR Calc Prostate Specific Antigen Screen 0.37 ng/mL 0.00-4.00 [facility] Comment on above: This test was perfor med using the TPSA assay method for the[employer] chemistry system. Values obtained with differentassay methods cannot be used interchangably.When changing PSA assays in the course of monitoring apatient, additional sequential testing should be carriedout to confirm baseline values. RBC Auto (Bld) [#/Vol]Ordere d By: Ben Cameron on 08-03-2023 RBC (Bld) [#/Vol] 4.42 10*6/uL 4.6-6.2 [facility] Serum or plasma calcium shemar urement (mass/volume)Ordered By: Ben Cameron on 08-03-2023 Calcium [Mass/Vol] 9.1 mg/dL 8.5-10.1 [facility] Serum or plasma creatinine m easurement (mass/volume)Ordered By: Ben Cameron on 08-03-2023 Creatinine [Mass/Vol] 0.80 mg/dL 0.70-1.30 [facility] Comment on above: The validity of the calculated GFR & GFRAA in patients over 70 years has not been determined. Clinical correlation is essential. Serum or plasma thyroid stim ulating hormone (TSH) measurement (units/volume)Ordered By: Ben Cameron on 08-03-2023 TSH Qn 0.98 uIU/mL 0.358-3.74 [facility] Serum or plasma urea nitroge n measurement (mass/volume)Ordered By: Ben Cameron on 08-03-2023 Urea nitrogen [Mass/Vol] 18 mg/dL 7-18 [facility] Thin prep Papanicolaou smear with manual screeningOrdered By: Ben Cameron on 08-03-2023 Thin prep Papanicolaou smear with manual screening 4.2 g/dL 3.2-5.0 [facility] Thin prep Papanicolaou smear with manual screening 18 U/L 15-37 [facility] Thin prep Papanicolaou smear with manual screening 8 5-15 [facility] Absolute lymphocyte countOrd ered By: Ben Cameron on 02-24-2023 Lymphocytes Auto (Unsp spec) [#/Vol] 1.81 10*3/uL 0.83-4.51 [facility] Basophil percentageOrdered B y: Ben Cameron on 02-24-2023 Basophils/100 WBC (Bld) 0.9 % 0-1 [facility] Bilirubin [Mass/Vol] 0.80 mg/dL 0.20-1.00 [facility] Comment on above: For patients on eltr ombopag therapy, use of Dimension [place] TBIL is not recommended. Chloride [Moles/Vol] 106 mmol/L 98-107 [facility] Eosinophils/100 WBC (Bld) 3.3 % 0-5 [facility] Glucose [Mass/Vol] 92 mg/dL 74-106 [facility] Neutrophils (Bld) [#/Vol] 2.9 10*3/uL 2.0-7.7 [facility] Neutrophils/100 WBC (Bld) 54.3 % 47-70 [facility] Potassium [Moles/Vol] 4.3 mmol/L 3.5-5.1 [facility] Protein [Mass/Vol] 7.4 g/dL 6.4-8.2 [facility] Sodium [Moles/Vol] 139 mmol/L 136-145 [facility] WBC (Bld) [#/Vol] 5.4 10*3/uL 4.4-11.0 [facility] Blood erythrocytes count (nu mber/volume)Ordered By: Ben Cameron on 02-24-2023 RBC (Bld) [#/Vol] 4.65 10*6/uL 4.6-6.2 [facility] Blood hemoglobin measurement (mass/volume)Ordered By: Ben Cameron on 02-24-2023 Hemoglobin (Bld) [Mass/Vol] 15.0 g/dL 13.0-16.5 [facility] Blood lymphocytes/100 leukoc ytesOrdered By: Ben Cameron on 02-24-2023 Lymphocytes/100 WBC (Bld) 33.4 % 19-41 [facility] Blood monocytes/100 leukocyt esOrdered By: Ben Cameron on 02-24-2023 Monocytes/100 WBC (Bld) 7.9 % 0-10 [facility] Blood platelet mean volumeOr dered By: Ben Cameron on 02-24-2023 Platelet mean volume (Bld) [Entitic vol] 10.4 fL 6.2-12.0 [facility] Determination of erythrocyte mean corpuscular volume (MCV)Ordered By: Ben Cameron on 02-24-2023 MCV (RBC) [Entitic vol] 97.8 fL 80-94 [facility] Hematocrit Auto (Bld) [Volum e fraction]Ordered By: Ben Cameron on 02-24-2023 Hematocrit (Bld) [Volume fraction] 45.5 % 40-54 [facility] - Chemistry and C hemistry - challengeOrdered By: Ben Cameron on 02-24-2023 ALP [Catalytic activity/Vol] 77 U/L 45-117 [facility] ALT [Catalytic activity/Vol] 28 U/L 16-61 [facility] CO2 [Moles/Vol] 27.0 mmol/L 21.0-32.0 [facility] Globulin (S) [Mass/Vol] 3.2 g/dL 2.2-4.2 [facility] Urea nitrogen/Creatinine [Mass ratio] 20.2 mg/mg 10-20 [facility] - Hematology and Cell countsOrdered By: Ben Cameron on 02-24-2023 Erythrocyte distribution width (RBC) [Entitic vol] 45.8 fL 35.1-43.9 [facility] Erythrocyte distribution width (RBC) [Ratio] 12.8 % 11.6-14.6 [facility] Immature granulocytes/100 WBC (Bld) 0.200 % 0.0-0.9 [facility] Comment on above: IG% - Immature Granu locytes (promyelocytes, myelocytes and metamyelocytes) > 1% indicates that a LEFT SHIFT is Present. MCH (RBC) [Entitic mass] 32.3 pg 27.0-32.0 [facility] Nucleated RBC/100 WBC (Bld) [Ratio] 0 % 0-5 [facility] MCHC Auto (RBC) [Mass/Vol]Or dered By: Ben Cameron on 02-24-2023 MCHC (RBC) [Mass/Vol] 33.0 g/dL 32-36 [facility] No Panel InformationOrdered By: Ben Cameron on 02-24-2023 Estimated GFR (MDRD) Amer 121 mL/min >60 [facility] Comment on above: GFR Calc Estimated GFR (MDRD) Non-Af Amer 100 mL/min >60 [facility] Comment on above: Non- GFR Calc Thyroid Stimulating Hormone (TSH) 1.51 uIU/mL 0.358-3.74 [facility] Platelets bldOrdered By: Ben Cameron on 02-24-2023 Platelets (Bld) [#/Vol] 201 10*3/uL 150-450 [facility] Serum or plasma albumin shemar urement (mass/volume)Ordered By: Ben Cameron on 02-24-2023 Albumin [Mass/Vol] 4.2 g/dL 3.2-5.0 [facility] Serum or plasma albumin/glob ulin mass ratioOrdered By: Ben Cameron on 02-24-2023 Albumin/Globulin [Mass ratio] 1.3 {ratio} 0.9-2.4 [facility] Serum or plasma calcium shemar urement (mass/volume)Ordered By: Ben Cameron on 02-24-2023 Calcium [Mass/Vol] 9.5 mg/dL 8.5-10.1 [facility] Serum or plasma creatinine m easurement (mass/volume)Ordered By: Ben Cameron on 02-24-2023 Creatinine [Mass/Vol] 0.84 mg/dL 0.70-1.30 [facility] Comment on above: The validity of the calculated GFR & GFRAA in patients over 70 years has not been determined. Clinical correlation is essential. Serum or plasma urea nitroge n measurement (mass/volume)Ordered By: Ben Cameron on 02-24-2023 Urea nitrogen [Mass/Vol] 17 mg/dL 11-24 [facility] Serum or plasma uric acid me asurement (mass/volume)Ordered By: Ben Cameron on 02-24-2023 Urate [Mass/Vol] 5.5 mg/dL 3.5-7.2 [facility] Comment on above: The drugs N-Acetylcy steine and Metamizole may falsely depress this assay. Thin prep Papanicolaou smear with manual screeningOrdered By: Ben Cameron on 02-24-2023 Thin prep Papanicolaou smear with manual screening 15 U/L 15-37 [facility] Thin prep Papanicolaou smear with manual screening 6 5-15 [facility] Basophil percentageOrdered B y: Ben Cameron on 10-30-2022 Bilirubin [Mass/Vol] 0.80 mg/dL 0.20-1.00 [facility] Comment on above: For patients on eltr ombopag therapy, use of Dimension [place] TBIL is not recommended. Chloride [Moles/Vol] 106 mmol/L 98-107 [facility] Glucose [Mass/Vol] 82 mg/dL 74-106 [facility] Potassium [Moles/Vol] 4.4 mmol/L 3.5-5.1 [facility] Comment on above: Moderate Hemolysis, Result may be falsely increased. Protein [Mass/Vol] 7.2 g/dL 6.4-8.2 [facility] Sodium [Moles/Vol] 139 mmol/L 136-145 [facility] - Chemistry and C hemistry - challengeOrdered By: Ben Cameron on 10-30-2022 ALP [Catalytic activity/Vol] 78 U/L 45-117 [facility] ALT [Catalytic activity/Vol] 38 U/L 16-61 [facility] CO2 [Moles/Vol] 27.0 mmol/L 21.0-32.0 [facility] Globulin (S) [Mass/Vol] 3.1 g/dL 2.2-4.2 [facility] Urea nitrogen/Creatinine [Mass ratio] 19.4 mg/mg 10-20 [facility] No Panel InformationOrdered By: Ben Cameron on 10-30-2022 Estimated GFR (MDRD) Amer 124 mL/min >60 [facility] Comment on above: GFR Calc Estimated GFR (MDRD) Non-Af Amer 103 mL/min >60 [facility] Comment on above: Non- GFR Calc Serum or plasma albumin shemar urement (mass/volume)Ordered By: Ben Cameron on 10-30-2022 Albumin [Mass/Vol] 4.1 g/dL 3.2-5.0 [facility] Serum or plasma albumin/glob ulin mass ratioOrdered By: Ben Cameron on 10-30-2022 Albumin/Globulin [Mass ratio] 1.3 {ratio} 0.9-2.4 [facility] Serum or plasma calcium shemar urement (mass/volume)Ordered By: Ben Cameron on 10-30-2022 Calcium [Mass/Vol] 9.4 mg/dL 8.5-10.1 [facility] Serum or plasma creatinine m easurement (mass/volume)Ordered By: Ben Cameron on 10-30-2022 Creatinine [Mass/Vol] 0.82 mg/dL 0.70-1.30 [facility] Comment on above: The validity of the calculated GFR & GFRAA in patients over 70 years has not been determined. Clinical correlation is essential. Serum or plasma urea nitroge n measurement (mass/volume)Ordered By: Ben Cameron on 10-30-2022 Urea nitrogen [Mass/Vol] 16 mg/dL 7-18 [facility] Thin prep Papanicolaou smear with manual screeningOrdered By: Ben Cameron on 10-30-2022 Thin prep Papanicolaou smear with manual screening 34 U/L 15-37 [facility] Comment on above: Moderate Hemolysis, Result may be falsely increased. Thin prep Papanicolaou smear with manual screening 6 5-15 [facility] Absolute lymphocyte countOrd ered By: Dr. Cameron on 07-29-2022 Lymphocytes Auto (Unsp spec) [#/Vol] 1.75 10*3/uL 0.83-4.51 [facility] Basophil percentageOrdered B y: Dr. Cameron on 07-29-2022 Basophils/100 WBC (Bld) 0.8 % 0-1 [facility] [place] Bilirubin [Mass/Vol] 0.50 mg/dL 0.20-1.00 [facility] Comment on above: For patients on eltr ombopag therapy, use of Dimension [place] TBIL is not recommended. Chloride [Moles/Vol] 107 mmol/L 98-107 [facility] Eosinophils/100 WBC (Bld) 6.0 % 0-5 [facility] Glucose [Mass/Vol] 108 mg/dL 74-106 [facility] Comment on above: Fasting Glucose resu lt from 100 to 125 mg/dL suggests IMPAIRED HOMEOSTASIS per A.D.A. criteria. Neutrophils (Bld) [#/Vol] 3.3 10*3/uL 2.0-7.7 [facility] Neutrophils/100 WBC (Bld) 54.9 % 47-70 [facility] Potassium [Moles/Vol] 4.0 mmol/L 3.5-5.1 [facility] Protein [Mass/Vol] 7.7 g/dL 6.4-8.2 [facility] Sodium [Moles/Vol] 140 mmol/L 136-145 [facility] WBC (Bld) [#/Vol] 6.0 10*3/uL 4.4-11.0 [facility] Blood erythrocytes count (nu mber/volume)Ordered By: Dr. Cameron on 07-29-2022 RBC (Bld) [#/Vol] 4.90 10*6/uL 4.6-6.2 [facility] Blood hemoglobin measurement (mass/volume)Ordered By: Dr. Cameron on 07-29-2022 Hemoglobin (Bld) [Mass/Vol] 16.0 g/dL 13.0-16.5 [facility] Blood lymphocytes/100 leukoc ytesOrdered By: Dr. Cameron on 07-29-2022 Lymphocytes/100 WBC (Bld) 29.0 % 19-41 [facility] Blood monocytes/100 leukocyt esOrdered By: Dr. Cameron on 07-29-2022 Monocytes/100 WBC (Bld) 9.0 % 0-10 [facility] [place] Blood platelet mean volumeOr dered By: Dr. Cameron on 07-29-2022 Platelet mean volume (Bld) [Entitic vol] 10.6 fL 6.2-12.0 [facility] Determination of erythrocyte mean corpuscular volume (MCV)Ordered By: Dr. Cameron on 07-29-2022 MCV (RBC) [Entitic vol] 97.3 fL 80-94 [facility] [place] Hematocrit Auto (Bld) [Volum e fraction]Ordered By: Dr. Cameron on 07-29-2022 Hematocrit (Bld) [Volume fraction] 47.7 % 40-54 [facility] Laboratory - Chemistry and C hemistry - challengeOrdered By: Dr. Cameron on 07-29-2022 ALP [Catalytic activity/Vol] 77 U/L 45-117 [facility] ALT [Catalytic activity/Vol] 115 U/L 16-61 [facility] CO2 [Moles/Vol] 27.0 mmol/L 21.0-32.0 [facility] Globulin (S) [Mass/Vol] 3.6 g/dL 2.2-4.2 [facility] Urea nitrogen/Creatinine [Mass ratio] 17.6 mg/mg 10-20 [facility] Laboratory - Hematology and Cell countsOrdered By: Dr. Cameron on 07-29-2022 Erythrocyte distribution width (RBC) [Entitic vol] 44.9 fL 35.1-43.9 [facility] Erythrocyte distribution width (RBC) [Ratio] 12.7 % 11.6-14.6 [facility] Immature granulocytes/100 WBC (Bld) 0.300 % 0.0-0.9 [facility] Comment on above: IG% - Immature Granu locytes (promyelocytes, myelocytes and metamyelocytes) > 1% indicates that a LEFT SHIFT is Present. MCH (RBC) [Entitic mass] 32.7 pg 27.0-32.0 [facility] Nucleated RBC/100 WBC (Bld) [Ratio] 0 % 0-5 [facility] MCHC Auto (RBC) [Mass/Vol]Or dered By: Dr. Cameron on 07-29-2022 MCHC (RBC) [Mass/Vol] 33.5 g/dL 32-36 [facility] No Panel InformationOrdered By: Dr. Cameron on 07-29-2022 Estimated GFR (MDRD) Amer 111 mL/min >60 [facility] Comment on above: GFR Calc Estimated GFR (MDRD) Non-Af Amer 92 mL/min >60 [facility] Comment on above: Non- GFR Calc Hepatitis C Antibody Non-Reactive Nonreactive [facility] Comment on above: Non Reactive: < 0.8 Equivocal: >/= 0.8 to < 1.0 Reactive: >/= 1.0The CDC recommends that a reactive/equivocal HCV antibody result be followed up by the HCV Nucleic Acid Amplificationtest (092313) Prostate Specific Antigen Screen 0.63 ng/mL 0.00-4.00 [facility] Comment on above: This test was perfor med using the TPSA assay method for the[employer] chemistry system. Values obtained with differentassay methods cannot be used interchangably.When changing PSA assays in the course of monitoring apatient, additional sequential testing should be carriedout to confirm baseline values. Thyroid Stimulating Hormone (TSH) 2.51 uIU/mL 0.358-3.74 [facility] Vitamin D 25-Hydroxy 33.9 ng/mL [facility] Comment on above: Vitamin D 25(OH) Sta tus Range Deficiency <20 ng/mL (50nmol/L) Insufficiency 20 - 30 ng/mL (50 - 75 nmol/L) Sufficiency 30 - 100 ng/mL (75 - 250 nmol/L) Toxicity >100 ng/mL (>250 nmol/L) Platelets bldOrdered By: Dr. Cameron on 07-29-2022 Platelets (Bld) [#/Vol] 231 10*3/uL 150-450 [facility] Serum or plasma albumin shemar urement (mass/volume)Ordered By: Dr. Cameron on 07-29-2022 Albumin [Mass/Vol] 4.1 g/dL 3.2-5.0 [facility] Serum or plasma albumin/glob ulin mass ratioOrdered By: Dr. Cameron on 07-29-2022 Albumin/Globulin [Mass ratio] 1.1 {ratio} 0.9-2.4 [facility] Serum or plasma calcium shemar urement (mass/volume)Ordered By: Dr. Cameron on 07-29-2022 Calcium [Mass/Vol] 9.5 mg/dL 8.5-10.1 [facility] Serum or plasma creatinine m easurement (mass/volume)Ordered By: Dr. Cameron on 07-29-2022 Creatinine [Mass/Vol] 0.91 mg/dL 0.70-1.30 [facility] Comment on above: The validity of the calculated GFR & GFRAA in patients over 70 years has not been determined. Clinical correlation is essential. Serum or plasma urea nitroge n measurement (mass/volume)Ordered By: Dr. Cameron on 07-29-2022 Urea nitrogen [Mass/Vol] 16 mg/dL 7-18 [facility] Serum or plasma uric acid me asurement (mass/volume)Ordered By: Dr. Cameron on 07-29-2022 Urate [Mass/Vol] 5.0 mg/dL 3.5-7.2 [facility] Comment on above: The drugs N-Acetylcy steine and Metamizole may falsely depress this assay. Thin prep Papanicolaou smear with manual screeningOrdered By: Dr. Cameron on 07-29-2022 Thin prep Papanicolaou smear with manual screening 54 U/L 15-37 [facility] Thin prep Papanicolaou smear with manual screening 6 5-15 [facility] Gel ABOon 04-14-2022 ABO/Rh Interp Negative Invalid Interpretation Code [facility] ([place]) Comment on above: Performed By: #### B MP, GFR, A1C, ANSG, ALB, ABOG #### [address] [address] Gel ABSon 04-14-2022 Antibody Screen Gel Negative Normal [facility] ([place]) Comment on above: Performed By: #### B MP, GFR, A1C, ANSG, ALB, ABOG #### [address] [place], [place] [address] XR FLUORO 1-2 HRS TECH TIMEo n 04-14-2022 XR FLUORO 1-2 HRS TECH TIME ORIGINAL Images acquired, not reported on this accession number. Normal [facility] ([place]) XR HIP LEFT W/PELVIS 4 VIEWS on 04-14-2022 XR HIP LEFT W/PELVIS 4 VIEWS ORIGINAL HISTORY: Postop arthroplasty COMPARISON: No FINDINGS: There are no acute fractures or dislocations. There is an arthroplasty in near anatomic alignment. There is no radiographic evidence of loosening or failure of hardware. Mild there is gas in the joint space in the overlying soft tissues. IMPRESSION: Left hip arthroplasty with immediate postoperative changes. Interpreted by: Tamie Lee MD Preliminary Report By: Tamie Lee MD Electronically signed By Tamie Lee MD Dictated Date: 04/14/2022 9:28:39 AM Prelim Date: 04/14/2022 9:29:21 AM Sign Date: 04/14/2022 9:29:21 AM Ordering Provider: MICHI BRADLEY [facility]) CNOVon 04-07-2022 CN Office Visit (FAMMAS) ---- EVANGELINA ANDREW ([id number]) 1965 M Date Time Provider Department 04/07/22 11:15 AM SUSANNA LARRY During your visit today, we recorded the following information about you: Temperature Pulse Respiration Blood pressure 97.5 degrees 63/minute 14/minute 112/80 Weight Height 112.9 kg 1.753 m Susanna Larry APRN.CNP 04/07/2022 11:41 AM Signed This note was created using QUIQriter. Subjective Evangelina Fu Lorrie is a 56 year old male. Patient presents to the office today to obtain presurgical clearance for a left total hip arthroplasty scheduled for 04/14/[address] Bradley at [facility]. Patient denies any history of CAD. Patient denies any chest pain, pressure, palpitations or difficulty breathing. Patient denies any adverse reactions to anesthesia in the past. Patient reports BP has been well controlled. Patient underwent presurgical testing on 03/31/2022 in which an EKG and labs were performed-------all of which were normal. EKG shows sinus rhythm without any signs of ischemia. Patient reports he is feeling good aside from pain in the left hip. Review of Systems Constitutional: Negative. HENT: Negative. Eyes: Negative. Respiratory: Negative. Cardiovascular: Negative. Gastrointestinal: Negative. Endocrine: Negative. Genitourinary: Negative. Musculoskeletal: Positive for arthralgias (left hip pain). Skin: Negative. Allergic/Immunologi c: Negative. Neurological: Negative. Hematological: Negative. Psychiatric/Behavio ral: Negative. Objective BP 112/80 (BP Site: Left Arm, BP Position: Sitting) Pulse 63 Temp 36.4 ?C (97.5 ?F) (Temporal) Resp 14 Ht 175.3 cm (5' 9) Wt 112.9 kg (249 lb) SpO2 99% BMI 36.77 kg/m? Physical Exam Constitutional: General: He is not in acute distress. Appearance: Normal appearance. He is obese. He is not ill-appearing, toxic-appearing or diaphoretic. HENT: Head: Normocephalic and atraumatic. Right Ear: Tympanic membrane, ear canal and external ear normal. Left Ear: Tympanic membrane, ear canal and external ear normal. Nose: Nose normal. Mouth/Throat: Mouth: Mucous membranes are moist. Pharynx: Oropharynx is clear. Eyes: Extraocular Movements: Extraocular movements intact. Conjunctiva/sclera: Conjunctivae normal. Pupils: Pupils are equal, round, and reactive to light. Neck: Vascular: No carotid bruit. Cardiovascular: Rate and Rhythm: Normal rate and regular rhythm. Pulses: Normal pulses. Heart sounds: Normal heart sounds. No murmur heard. Pulmonary: Effort: Pulmonary effort is normal. No respiratory distress. Breath sounds: Normal breath sounds. No stridor. No wheezing, rhonchi or rales. Chest: Chest wall: No tenderness. Abdominal: General: Bowel sounds are normal. Palpations: Abdomen is soft. Musculoskeletal: Cervical back: Normal range of motion and neck supple. No rigidity or tenderness. Comments: Left hip tenderness and decreased ROM Lymphadenopathy: Cervical: No cervical adenopathy. Skin: General: Skin is warm and dry. Capillary Refill: Capillary refill takes less than 2 seconds. Neurological: General: No focal deficit present. Mental Status: He is alert and oriented to person, place, and time. Psychiatric: Mood and Affect: Mood normal. Behavior: Behavior normal. Thought Content: Thought content normal. Judgment: Judgment normal. Assessment and Plan ASSESSMENT/PLAN: 1. Preoperative evaluation to rule out surgical contraindication - ICD9: V72.83, ICD10: Z01.818 (primary diagnosis) Presurgical testing does not reveal any significant abnormalities. EKG is sinus rhythm without signs of ischemia. Patient denies any chest pain, pressure, palpitations, or shortness of breath. Patient is medically optimized for surgery. 2. Gout, unspecified cause, unspecified chronicity, unspecified site - ICD9: 274.9, ICD10: M10.9 Obtain labs below - ALLOPURINOL 300 MG TABLET - URIC ACID BLOOD 3. Hypertension, benign - ICD9: 401.1, ICD10: I10 - good control - Continue current medication(s) - Recommended regular aerobic exercise. - Recommend home blood pressure monitoring, to bring results in on next visit - Goal of BP <130/80 - OLMESARTAN 20 MG TABLET Patient to schedule wellness exam with Dr. Chandler. Susanna Larry APRN.ALUMINUM WELDER Susanna Larry APRN.PRINCE 04/07/2022 11:28 AM Addendum - Continue current medications - Complete uric acid level - Follow up with ortho as they instruct - Notify office with any health issues or concerns. - Follow up with Dr. Chandler in 3 months for wellness Allergies As of Date: 04/07/2022 Noted Allergy Reaction PENICILLINS 10/28/2006 Date Reviewed: 04/07/2022 Reviewed by: Susanna Larry APRN.ALUMINUM WELDER - Fully Assessed Reason for Visit: Medical Clearance [1983] Cmt: surgery clearance for upcoming lef (more content not included)... Normal [facility] Urate SerPl-Chris 2 Urate [Mass/Vol] 5.8 mg/dL Normal 2.6-6.0 [facility] Comment on above: Order Comment: Speci men Type: BLOOD SPECIMEN Ordering Facility: [facility] Address: [address] [place] [id number] Result Comment: Marichuy ents receiving Metamizole prior to venipuncture, may have falsely depressed results. Performed By: #### 3 [id number] #### [facility] CLIA [id number] [address] [place] [address] [place] .Auto Diffon 03-31-2022 Basophil, Absolute 0.0 10 3/mcL Normal 0.0-0.2 [facility] ([place]) Comment on above: Performed By: #### B MP, GFR, A1C, ANSG, ALB, ABOG #### [address] [address] Basophils/100 WBC (Bld) 0.2 % Normal 0.0-2.5 A [facility] ([place]) Comment on above: Performed By: #### B MP, GFR, A1C, ANSG, ALB, ABOG #### [address] [address] Eosinophil, Absolute 0.1 10 3/mcL Normal 0.0-0.4 [facility] ([place]) Comment on above: Performed By: #### B MP, GFR, A1C, ANSG, ALB, ABOG #### [address] [address] Eosinophils/100 WBC (Bld) 0.9 % Normal 0.0-7.0 [facility] ([place]) Comment on above: Performed By: #### B MP, GFR, A1C, ANSG, ALB, ABOG #### [address] [address] Lymphocyte, Absolute 2.3 10 3/mcL Normal 0.8-3.9 [facility] ([place]) Comment on above: Performed By: #### B MP, GFR, A1C, ANSG, ALB, ABOG #### [address] [address] Lymphocytes/100 WBC (Bld) 23.1 % Normal 10.0-50.0 [facility] ([place]) Comment on above: Performed By: #### B MP, GFR, A1C, ANSG, ALB, ABOG #### [address] [address] Monocyte, Absolute 1.2 10 3/mcL High 0.2-1.0 [facility] ([place]) Comment on above: Performed By: #### B MP, GFR, A1C, ANSG, ALB, ABOG #### [address] [place], [place] [address] Monocytes/100 WBC (Bld) 11.6 % Normal 1.7-13.0 A [facility] ([place]) Comment on above: Performed By: #### B MP, GFR, A1C, ANSG, ALB, ABOG #### [address] [address] Neutrophils/100 WBC (Bld) 64.2 % Normal 37.0-80.0 [facility] ([place]) Comment on above: Performed By: #### B MP, GFR, A1C, ANSG, ALB, ABOG #### [address] [address] .GFRon 03-31-2022 GFR 95 ml/min/1.73sqm Normal [facility] ([place]) Comment on above: Result Comment: GFR Population mean for , Non- Americans Ages 20-29 = 116 mL/min/1.73 sq.m. Ages 30-39 = 107 mL/min/1.73 sq.m. Ages 40-49 = 99 mL/min/1.73 sq.m. Ages 50-59 = 93 mL/min/1.73 sq.m. Ages 60-69 = 85 mL/min/1.73 sq.m. Ages 70+ = 75 mL/min/1.73 sq.m. Chronic Kidney Disease: Less than 60 mL/min/1.73 square meters End Stage Renal Disease: Less than 15 mL/min/1.73 square meters Performed By: #### B MP, GFR, A1C, ANSG, ALB, ABOG #### [address] [place], [place] [address] GFR Non- 78 ml/min/1.73sqm Normal [facility] ([place]) Comment on above: Result Comment: GFR Population mean for , Non- Americans Ages 20-29 = 116 mL/min/1.73 sq.m. Ages 30-39 = 107 mL/min/1.73 sq.m. Ages 40-49 = 99 mL/min/1.73 sq.m. Ages 50-59 = 93 mL/min/1.73 sq.m. Ages 60-69 = 85 mL/min/1.73 sq.m. Ages 70+ = 75 mL/min/1.73 sq.m. Chronic Kidney Disease: Less than 60 mL/min/1.73 square meters End Stage Renal Disease: Less than 15 mL/min/1.73 square meters Performed By: #### B MP, GFR, A1C, ANSG, ALB, ABOG #### [address] [address] .NEUABSon 03-31-2022 Neutrophil, Absolute 6.4 10 3/mcL High 2.9-6.2 [facility] ([place]) Comment on above: Performed By: #### B MP, GFR, A1C, ANSG, ALB, ABOG #### [address] [address] A1Con 03-31-2022 HbA1c (Bld) [Mass fraction] 5.5 % Normal 4.3-6.4 [facility] ([place]) Comment on above: Performed By: #### B MP, GFR, A1C, ANSG, ALB, ABOG #### [address] [address] ALBon 03-31-2022 Albumin Level 4.4 G/dL Normal 3.5-5.0 [facility] ([place]) Comment on above: Performed By: #### B MP, GFR, A1C, ANSG, ALB, ABOG #### [address] [address] BMPon 03-31-2022 BUN/Creatinine Ratio 24 ratio Normal 7-27 [facility] ([place]) Comment on above: Performed By: #### B MP, GFR, A1C, ANSG, ALB, ABOG #### [address] [address] Calcium [Mass/Vol] 9.4 mg/dL Normal 8.4-10.2 [facility] ([place]) Comment on above: Performed By: #### B MP, GFR, A1C, ANSG, ALB, ABOG #### [address] [address] Chloride [Moles/Vol] 102 mmol/L Normal 98-107 [facility] ([place]) Comment on above: Performed By: #### B MP, GFR, A1C, ANSG, ALB, ABOG #### [address] [address] CO2 [Moles/Vol] 28 mmol/L Normal 22-29 [facility] ([place]) Comment on above: Performed By: #### B MP, GFR, A1C, ANSG, ALB, ABOG #### [address] [address] Creatinine [Mass/Vol] 0.99 mg/dL Normal 0.70-1.30 [facility] ([place]) Comment on above: Performed By: #### B MP, GFR, A1C, ANSG, ALB, ABOG #### [address] [address] Electrolyte Balance 9.0 mEq/L Normal 4.0-15.0 [facility] ([place]) Comment on above: Performed By: #### B MP, GFR, A1C, ANSG, ALB, ABOG #### [address] [address] Glucose [Mass/Vol] 84 mg/dL Normal 70-105 [facility] ([place]) Comment on above: Performed By: #### B MP, GFR, A1C, ANSG, ALB, ABOG #### [address] [address] Potassium [Moles/Vol] 4.3 mmol/L Normal 3.5-5.1 [facility] ([place]) Comment on above: Performed By: #### B MP, GFR, A1C, ANSG, ALB, ABOG #### [address] [address] Sodium [Moles/Vol] 139 mmol/L Normal 136-145 [facility] ([place]) Comment on above: Performed By: #### B MP, GFR, A1C, ANSG, ALB, ABOG #### [address] [address] Urea nitrogen [Mass/Vol] 24 mg/dL High 7-18 [facility] ([place]) Comment on above: Performed By: #### B MP, GFR, A1C, ANSG, ALB, ABOG #### [address] [address] CBCon 03-31-2022 Erythrocyte distribution width (RBC) [Ratio] 13.5 % Normal 11.5-14.5 [facility] ([place]) Comment on above: Order Comment: Pre-A dmission Testing Performed By: #### B MP, GFR, A1C, ANSG, ALB, ABOG #### [address] [address] Hematocrit (Bld) [Volume fraction] 47.2 % Normal 42.0-52.0 [facility] ([place]) Comment on above: Order Comment: Pre-A dmission Testing Performed By: #### B MP, GFR, A1C, ANSG, ALB, ABOG #### [address] [address] Hgb 16.2 G/dL Normal 14.0-18.0 [facility] ([place]) Comment on above: Order Comment: Pre-A dmission Testing Performed By: #### B MP, GFR, A1C, ANSG, ALB, ABOG #### [address] [address] MCH (RBC) [Entitic mass] 32.9 pg High 27.0-31.2 [facility] ([place]) Comment on above: Order Comment: Pre-A dmission Testing Performed By: #### B MP, GFR, A1C, ANSG, ALB, ABOG #### [address] [address] MCHC 34.3 G/dL Normal 31.8-35.4 [facility] ([place]) Comment on above: Order Comment: Pre-A dmission Testing Performed By: #### B MP, GFR, A1C, ANSG, ALB, ABOG #### [address] [address] MCV (RBC) [Entitic vol] 96.2 fL High 80.0-94.0 A [facility] ([place]) Comment on above: Order Comment: Pre-A dmission Testing Performed By: #### B MP, GFR, A1C, ANSG, ALB, ABOG #### [address] [address] Platelet 205 10 3/mcL Normal 130-400 [facility] ([place]) Comment on above: Order Comment: Pre-A dmission Testing Performed By: #### B MP, GFR, A1C, ANSG, ALB, ABOG #### [address] [address] Platelet mean volume (Bld) [Entitic vol] 8.8 fL Normal 7.4-10.4 [facility]) Comment on above: Order Comment: Pre-A dmission Testing Performed By: #### B MP, GFR, A1C, ANSG, ALB, ABOG #### [address] [address] RBC 4.90 10 6/mcL Normal 4.04-6.13 [facility]) Comment on above: Order Comment: Pre-A dmission Testing Performed By: #### B MP, GFR, A1C, ANSG, ALB, ABOG #### [address] [address] WBC 10.0 10 3/mcL Normal 4.6-10.8 [facility] ([place]) Comment on above: Order Comment: Pre-A dmission Testing Performed By: #### B MP, GFR, A1C, ANSG, ALB, ABOG #### [address] [address] Gel ABOon 03-31-2022 ABO/Rh Interp Negative Invalid Interpretation Code [facility] ([place]) Comment on above: Performed By: #### B MP, GFR, A1C, ANSG, ALB, ABOG #### [address] [place], [place] [address] Gel ABSon 03-31-2022 Antibody Screen Gel Negative Normal [facility] ([place]) Comment on above: Performed By: #### B MP, GFR, A1C, ANSG, ALB, ABOG #### [address] [place], [place] [address] LABORATORYOrdered By: Lalita Dash on 03-31-2022 ABO/Rh Interp Negative Invalid Interpretation Code AO BB SS Antibody Screen Gel Negative [facility]SC (03/31/22 9:28 AM) Invalid Interpretation Code AO BB SS LABORATORYOrdered By: Qian Alvares on 03-31-2022 Albumin BCP dye [Mass/Vol] 4.4 G/dL Invalid Interpretation Code 3.5 - 5.0 G/dL AO ADM SS Basophil, Absolute 0.0 103/mcL Invalid Interpretation Code 0.0 - 0.2 10^3/mcL AO Workflow SS Basophils/100 WBC (Bld) 0.2 % Invalid Interpretation Code 0.0 - 2.5 % AO Workflow SS Calcium [Mass/Vol] 9.4 mg/dL Invalid Interpretation Code 8.4 - 10.2 mg/dL AO ADM SS Chloride [Moles/Vol] 102 mmol/L Invalid Interpretation Code 98 - 107 mmol/L AO ADM SS CO2 [Moles/Vol] 28 mmol/L Invalid Interpretation Code 22 - 29 mmol/L AO ADM SS Creatinine [Mass/Vol] 0.99 mg/dL Invalid Interpretation Code 0.70 - 1.30 mg/dL AO ADM SS Electrolyte Balance 9.0 mEq/L Invalid Interpretation Code 4.0 - 15.0 mEq/L AO ADM SS Eosinophil, Absolute 0.1 103/mcL Invalid Interpretation Code 0.0 - 0.4 10^3/mcL AO Workflow SS Eosinophils/100 WBC (Bld) 0.9 % Invalid Interpretation Code 0.0 - 7.0 % AO Workflow SS Erythrocyte distribution width (RBC) [Ratio] 13.5 % Invalid Interpretation Code 11.5 - 14.5 % AO Workflow SS Glucose [Mass/Vol] 84 mg/dL Invalid Interpretation Code 70 - 105 mg/dL AO ADM SS Hematocrit (Bld) [Volume fraction] 47.2 % Invalid Interpretation Code 42.0 - 52.0 % AO Workflow SS Hemoglobin (Bld) [Mass/Vol] 16.2 G/dL Invalid Interpretation Code 14.0 - 18.0 G/dL AO Workflow SS Lymphocyte, Absolute 2.3 103/mcL Invalid Interpretation Code 0.8 - 3.9 10^3/mcL AO Workflow SS Lymphocytes/100 WBC (Bld) 23.1 % Invalid Interpretation Code 10.0 - 50.0 % AO Workflow SS MCH (RBC) [Entitic mass] 32.9 pg Invalid Interpretation Code 27.0 - 31.2 pg AO Workflow SS MCHC 34.3 G/dL Invalid Interpretation Code 31.8 - 35.4 G/dL AO Workflow SS MCV (RBC) [Entitic vol] 96.2 fL Invalid Interpretation Code 80.0 - 94.0 fL AO Workflow SS Monocyte, Absolute 1.2 103/mcL Invalid Interpretation Code 0.2 - 1.0 10^3/mcL AO Workflow SS Monocytes/100 WBC (Bld) 11.6 % Invalid Interpretation Code 1.7 - 13.0 % AO Workflow SS Neutrophil, Absolute 6.4 103/mcL Invalid Interpretation Code 2.9 - 6.2 10^3/mcL AO Workflow SS Neutrophils/100 WBC (Bld) 64.2 % Invalid Interpretation Code 37.0 - 80.0 % AO Workflow SS Platelet mean volume (Bld) [Entitic vol] 8.8 fL Invalid Interpretation Code 7.4 - 10.4 fL AO Workflow SS Platelets (Bld) [#/Vol] 205 103/mcL Invalid Interpretation Code 130 - 400 10^3/mcL AO Workflow SS Potassium [Moles/Vol] 4.3 mmol/L Invalid Interpretation Code 3.5 - 5.1 mmol/L AO ADM SS RBC (Bld) [#/Vol] 4.90 106/mcL Invalid Interpretation Code 4.04 - 6.13 10^6/mcL AO Workflow SS Sodium [Moles/Vol] 139 mmol/L Invalid Interpretation Code 136 - 145 mmol/L AO ADM SS Urea nitrogen [Mass/Vol] 24 mg/dL Invalid Interpretation Code 7 - 18 mg/dL AO ADM SS Urea nitrogen/Creatinine [Mass ratio] 24 ratio Invalid Interpretation Code 7 - 27 ratio AO ADM SS WBC (Bld) [#/Vol] 10.0 103/mcL Invalid Interpretation Code 4.6 - 10.8 10^3/mcL AO Workflow SS LABORATORYOrdered By: SYSTEM SYSTEM on 03-31-2022 GFR 95 ml/min/1.73sqm Invalid Interpretation Code AO Chemistry S GFR Non- 78 ml/min/1.73sqm Invalid Interpretation Code AO Chemistry S LABORATORYOrdered By: Felipe Portillo on 03-31-2022 HbA1c (Bld) [Mass fraction] 5.5 % Invalid Interpretation Code 4.3 - 6.4 % AO ADM SS LUMBAR SPINE 2 OR 3 VWSon LUMBAR SPINE 2 OR 3 VWS LUMBAR SPINE 2 O R 3 VWS Ordering Physician: Susanna Larry 09/25/2020 11:55 AM LUMBAR SPINE THREE VIEWS: Clinical Statement: Spinal stenosis, low back pain Comparison: None FINDINGS: There are five lumbar-type vertebra. There is mild dextrocurvature with the apex at L3. There is mild disk space narrowing at L4-5. Facet arthropathy is present at L5-S1 more than L4-L5 SI joints are symmetric. 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 ---- Electronic Signature on File ---- Signed By: Evangelina Kowalski MD PhD [email or web address] Dictated: 09/25/2020 3:43 PM Signed: 09/25/2020 3:44 PM Reported By: EVANGELINA KOWALSKI M.D. Signed By: EVANGELINA KOWALSKI M.D. Normal [facility] CBC W/DIFFon 07-22-2020 BASO ABS 0.10 K/CU MM Normal 0-0.2 [facility] Comment on above: Performed By: #### L [id number] #### [facility] [address] [place] [address] Basophils/100 WBC (Bld) 0.8 % Normal 0-2 M [facility] Comment on above: Performed By: #### L [id number] #### [facility] [address] [place] [address] EOS ABS 0.30 K/CU MM Normal 0-0.5 [facility] Comment on above: Performed By: #### L [id number] #### [facility] [address] [place] [address] Eosinophils/100 WBC (Bld) 3.2 % Normal 0-5 [facility] Comment on above: Performed By: #### L [id number] #### [facility] [address] [place] [address] Erythrocyte distribution width (RBC) [Ratio] 12.7 % Normal 11-14.5 [facility] Comment on above: Performed By: #### L [id number] #### [facility] [address] [place] [address] Hematocrit (Bld) [Volume fraction] 47.3 % Normal 41.0-53.0 [facility] Comment on above: Performed By: #### L [id number] #### [facility] [address] [place] [address] Hemoglobin (Bld) [Mass/Vol] 15.9 g/dL Normal 13.5-17.5 [facility] Comment on above: Performed By: #### L 200.07306 #### [facility] [address] [place] [address] IMMATR GRAN ABS 0.00 K/CU MM Normal Less than 2 [facility] Comment on above: Performed By: #### L [id number] #### [facility] [address] [place] [address] IMMATURE GRAN % 0.3 % Normal Less than 2 [facility] Comment on above: Performed By: #### L 200.37003 #### [facility] [address] [place] [address] LYMPH ABS 2.00 K/CU MM Normal 0.9-4.4 [facility] Comment on above: Performed By: #### L [id number] #### [facility] [address] [place] [address] Lymphocytes/100 WBC (Bld) 19.8 % Low 20-40 [facility] Comment on above: Performed By: #### L 200.89703 #### [facility] [address] [place] [address] MCHC (RBC) [Mass/Vol] 33.6 g/dL Normal 32.0-36.0 [facility] Comment on above: Performed By: #### L [id number] #### [facility] [address] [place] [address] MCV (RBC) [Entitic vol] 96.7 fL Normal 80.0-99.0 M [facility] Comment on above: Performed By: #### L 200.60144 #### [facility] [address] [place] [address] MONO ABS 0.80 K/CU MM Normal 0.1-1.1 [facility] Comment on above: Performed By: #### L [id number] #### [facility] [address] [place] [address] Monocytes/100 WBC (Bld) 8.2 % Normal 2-10 M [facility] Comment on above: Performed By: #### L 200.25968 #### [facility] [address] [place] [address] NEUTROPHIL ABS 6.70 K/CU MM Normal 2.0-8.3 [facility] Comment on above: Performed By: #### L 200.70393 #### [facility] [address] [place] [address] Neutrophils/100 WBC (Bld) 67.7 % Normal 45-75 [facility] Comment on above: Performed By: #### L 200.27097 #### [facility] [address] [place] [address] Nucleated RBC/100 WBC (Bld) [Ratio] 0.0 % Normal Less than 1 [facility] Comment on above: Performed By: #### L 200.07981 #### [facility] [address] [place] [address] Platelet mean volume (Bld) [Entitic vol] 10.2 fL Normal 9.4-12.4 [facility] Comment on above: Performed By: #### L 200.21529 #### [facility] [address] [place] [address] PLT 183 K/CU MM Normal 150-450 [facility] Comment on above: Performed By: #### L 200.17918 #### [facility] [address] [place] [address] RBC 4.89 M/CU MM Normal 4.50-6.00 [facility] Comment on above: Performed By: #### L 200.89656 #### [facility] [address] [place] [address] WBC 9.9 K/CUMM Normal 4.5-11.0 [facility] Comment on above: Performed By: #### L [id number] #### [facility] [address] [place] [address] Office Visiton 11-11-2016 Documentation of current medications (procedure) Done Invalid Interpretation Code [facility] Work Phone: Tobacco use CPHS Never smoker Invalid Interpretation Code [facility] Work Phone: Office Visiton 03-25-2016 Protein mass conc Done [facility] Work Phone: Tobacco smoking status NHIS Never smoker [facility] Work Phone: Vital Signs Date Time Vital Sign Value Performing Clinician Facility 11-02-2024 14:42-0400 Body height 175.[address] Ben Cameron MD Work Phone: [facility] 11-02-2024 14:30-0400 Body temperature 98.7 [degF] Dr. Ben Cameron MD Work Phone: 8(635)[phone] [address] 11-02-2024 14:30-0400 Diastolic blood pressure 70 mm[Hg] Dr. Ben Cameron MD Work Phone: 5(382)775-658640 [place] [address] 11-02-2024 14:30-0400 Heart rate 66 /min Dr. Ben Cameron MD Work Phone: 1(209)392-515575 [address] 11-02-2024 14:30-0400 Respiratory rate 16 /min Dr. Ben Cameron MD Work Phone: 7(371)[phone] [place] [address] 11-02-2024 14:30-0400 SaO2% (BldA) [Mass fraction] 100 % Dr. Ben Cameron MD Work Phone: 8(685)691-948440 [place] [address] 11-02-2024 14:30-0400 Systolic blood pressure 128 mm[Hg] Dr. Ben Cameron MD Work Phone: 7(453)392-895940 [place] [address] 11-02-2024 12:24-0400 Body height 175.[address] Ben Cameron MD Work Phone: 6(816)[phone] [place] [address] 11-02-2024 12:24-0400 Body mass index (BMI) [Ratio] 28 kg/m2 Dr. Ben Cameron MD Work Phone: 9(729)318-304040 [place] [address] 11-02-2024 12:24-0400 Body weight 86.[address] Ben Cameron MD Work Phone: 8(776)693-399640 [place] [address] 11-25-2022 09:30-0400 Body height 175.26 cm [facility] 11-25-2022 09:30-0400 Body weight 94.07 kg [facility] 10-28-2022 12:02-0400 Body height 175.26 cm [facility] 10-28-2022 12:02-0400 Body weight 98.7 kg [facility] 03-31-2022 08:47-0500 Body height 175.[address] MICHI BRADLEY MD [facility] 03-31-2022 08:47-0500 Body weight 109.[address] MICHI BRADLEY MD [facility] 03-31-2022 08:47-0500 Body weight 35.5 kg/m2 DR MICHI BRADLEY MD [facility] 03-31-2022 08:47-0500 diastolic 70 mm[Hg] DR MICHI BRADLEY MD [facility] 03-31-2022 08:47-0500 Heart rate 57 /min DR MICHI BRADLEY MD [facility] 03-31-2022 08:47-0500 systolic 112 mm[Hg] DR MICHI BRADLEY MD [facility] 03-25-2016 09:07-0500 BMI (Body Mass Index) 35.88 kg/m2 [facility] Work Phone: 03-25-2016 09:07-0500 Height 175.26 cm [facility] Work Phone: 03-25-2016 09:07-0500 Weight 110.22 kg [facility] Work Phone: Encounters Encounter Date Encounter Type Care Provider Facility Start: 11-02-2024 End: 11-02-[address] Ben Cameron MD Work Phone: [facility] Work Phone: Start: 11-02-2024 End: 11-02-2024 Patient encounter procedure Vijay PAYNE -[facility] Work Phone: Start: 11-02-2024 End: 11-02-2024 Emergency department patient visit Dr. Ben Cameron MD Work Phone: -Emergency Department Work Phone: Start: 08-18-2024 End: 08-18-[address] Ben Cameron MD Work Phone: [facility] Work Phone: Start: 08-18-2024 End: 08-18-[address] Ben Cameron MD -Laboratory Work Phone: Start: 08-18-2024 End: 08-18-2024 ambulatory Ben Cameron Facility:[facility] Start: 02-11-2024 End: 02-11-2024 ambulatory Vijay PAYNE [place] Start: 08-19-2023 End: 08-19-2023 ambulatory [facility] Work Phone: Start: 08-19-2023 End: 08-19-2023 Patient encounter procedure [facility]-Ultrasound, [facility] Work Phone: Start: 08-03-2023 End: 08-03-2023 ambulatory [facility] Work Phone: Start: 08-03-2023 End: 08-03-2023 Patient encounter procedure [facility]-Laboratory, Phy Office 3rd Flr Start: 02-24-2023 End: 02-24-2023 ambulatory [facility] Work Phone: Start: 02-24-2023 End: 02-24-2023 Patient encounter procedure [facility]-Laboratory, Phy Office 3rd Flr Start: 11-25-2022 End: 12-07-2022 ambulatory [facility] Work Phone: Start: 11-25-2022 End: 12-07-2022 Discharged Recurring [facility]-Nutritional Services Work Phone: Start: 10-30-2022 End: 10-30-2022 ambulatory [facility] Work Phone: Start: 10-30-2022 End: 10-30-2022 Patient encounter procedure [facility]-Laboratory Work Phone: Start: 10-28-2022 End: 11-06-2022 ambulatory [facility] Work Phone: Start: 10-28-2022 End: 11-06-2022 Discharged Recurring [facility] Services Work Phone: Start: 10-28-2022 Registered Recurring [facility] Work Phone: Start: 09-01-2022 End: 09-01-2022 ambulatory [facility] Work Phone: Start: 09-01-2022 End: 09-01-2022 Patient encounter procedure [facility]-Ultrasound, [facility] Start: 08-08-2022 End: 08-08-2022 ambulatory [facility] Work Phone: Start: 08-08-2022 End: 08-08-2022 Patient encounter procedure [facility]-Ultrasound, [facility] Start: 07-29-2022 End: 07-29-2022 ambulatory [facility] Work Phone: Start: 07-29-2022 End: 07-29-2022 Patient encounter procedure [facility]-Laboratory, Phy Office 3rd Flr Start: 04-17-[address] ANDRIY DAILY MD. Facility:B Start: 04-14-2022 End: 04-14-2022 ambulatory MICHI BRADLEY MD Facility:[facility] Start: 04-07-2022 End: 04-08-2022 ambulatory SUSANNA LARRY Facility:[id number] Start: 04-07-2022 [facility]counter [facility] other [facility]ced[facility] Start: 03-31-2022 End: 04-01-2022 ambulatory MICHI BRADLEY MD Facility:[facility] Start: 03-31-2022 End: 03-31-[address] MICHI BRADLEY MD [facility] Procedures Date Procedure Procedure Detail Performing Clinician Start: 11-02-2024 Plain x-ray of hand Dr. Ben Cameron MD Work Phone: Start: 08-18-2024 Prostate specific an tigen measurement Dr. Ben Cameron MD Work Phone: Comment on above: This test was perfor med using the [employer] tPSA method. Measured values of a patient sample can vary depending on the testing procedure used. PSA values determined on patient samples by different testing procedures cannot be used interchangeably. If there is a change in PSA assays while monitoring therapy, sequential testing should be performed to confirm baseline values. Start: 08-19-2023 Ultrasound elastogra phy of liver Start: 09-01-2022 Ultrasound elastography Start: 08-08-2022 Ultrasonography of abdomen Endolymphatic shunt DR TORRES BRADLEY MD Comment on above: left ear Laminectomy DR MICHI Rasheed MD Plan of Treatment Date Care Activity Detail Author Start: 11-02-2024 [facility] Start: 11-11-2016 End: 11-11-2016 Appointment Appointment [facility] Work Phone: Start: 11-11-2016 End: 11-11-2016 X-ray exam, knee, 4 or more X-Ray, Knee [facility] Work Phone: Hepatitis A virus Ig M Ab [Presence] in Serum [facility] Hepatitis B core ant ibody measurement, IgM type [facility] Hepatitis B surface antigen measurement [facility] Hepatitis C antibody measurement [facility] Patient Education [facility] Work Phone: Patient referral [facility] Work Phone: Immunizations Immunization Date Immunization Notes Care Provider Fa cility 11-02-2024 tetanus toxoid, redu roseann diphtheria toxoid, and acellular pertussis vaccine, adsorbed Dr. Ben Cameron MD Work Phone: [facility] Payers Date Payer Category Payer Unknown [id number] 2024 Self-pay [id number] 2021 Private Health Insurance [id number] 2014 Unknown ARTEMIO [id number] 1965 Unknown [id number] 2.16.8 [id number] 1965 Unknown [id number] 2.16.8 [id number] 1965 Unknown [id number] 2.16.8 [id number] Unknown [id number] Unknown [id number] Unknown [id number] 2.16.8 [id number] Unknown [id number] 2.16.8 [id number] Unknown [id number] 2.16.8 [id number] Social History Date Type Detail Facility Start: 03-31-2022 End: 11-02-2024 Tobacco smoking status Never smoked tobacco (finding) [facility] Start: 1965 Sex Assigned At Male A [facility] Tobacco smoking stat us KSIS Unknown if ever smoked [facility] Work Phone: Start: 08-23-2024 Sex Male (finding) [facility] Functional Status Date Assessment Result Facility 03-31-2022 Functional Status Sensory Defici ts Hearing deficit, left ear [facility] Radiology Diagnostic study note 11-02-2024 Note Date & Type Note Facility 11-02-2024 Radiology Diagnostic study note [facility] Imaging Services [address] [place] [address] Hand Min 3 Views MR#: [id number] Acct: [id number] Name: EVANGELINA ANDREW Rep #: [id number] : 1965 M 58 From: Candace Carter MD PCP: Dr. Ben Cameron MD Status: PRE E R Study:Hand Min 3 Views Date of Exam: Exam# [id number] Ordering Dr: Jony Coulter DO PROCEDURE: HAND MIN 3 VIEWS 11/02/2024 REASON FOR EXAM: LACERATION TECHNIQUE: HAND MIN 3 VIEWS COMPARISON: None FINDINGS: There is a soft tissue defect at the distal phalanx of the index finger with no visible underlying fracture or radiopaque foreign body. 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 Mineralization is normal. There is no visible atherosclerosis. RAD/Hand Min 3 Views IMPRESSION: There is a soft tissue defect at the distal phalanx of the index finger with no visible underlying fracture or radiopaque foreign body. 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 Reading Location: [facility] CC: Dr. Ben Cameron MD; Dr. Jony Coulter DO ~ Neurology Stroke Physician: Signed [facility] Discharge instructions 10-31-2024 Note Date & Type Note Facility 10-31-2024 Hospital Discharg e instructions Additional Instructions X-ray negative. Your tetanus updated. Wound repaired in the emergency department. wound care as discussed. Follow-up with Dr. Ellis. Call office to be seen on Wednesday. Use ibuprofen or Advil total 600 mg every 6 hours for the next 2 days then as needed. [facility] Work Phone: Progress note 04-07-2022 Note Date & Type Note Facility 04-07-2022 Note HNO ID: [id number] Author: Susanna Larry APRN.[employer]UMIN[employer] WELDER Service: ? Author Type: Nurse Practitioner Type: Progress Notes Filed: 04/07/2022 11:41 AM Note Text: This note was created using [employer]UIQriter. Subjective Evangelina Andrew is a 56 year old male. Patient presents to the office today to obtain presurgical clearance for a left total hip arthroplasty scheduled for 04/14/[address] Bradley at [facility]. Patient denies any history of CAD. Patient denies any chest pain, pressure, palpitations or difficulty breathing. Patient denies any adverse reactions to anesthesia in the past. Patient reports BP has been well controlled. Patient underwent presurgical testing on 03/31/2022 in which an EKG and labs were performed-------all of which were normal. EKG shows sinus rhythm without any signs of ischemia. Patient reports he is feeling good aside from pain in the left hip. Review of Systems Constitutional: Negative. HENT: Negative. Eyes: Negative. Respiratory: Negative. Cardiovascular: Negative. Gastrointestinal: Negative. Endocrine: Negative. Genitourinary: Negative. Musculoskeletal: Positive for arthralgias (left hip pain). Skin: Negative. Allergic/Immunologic: Negative. Neurological: Negative. Hematological: Negative. Psychiatric/Behavioral: Negative. Objective BP 112/80 (BP Site: Left Arm, BP Position: Sitting) Pulse 63 Temp 36.4 ?C (97.5 ?F) (Temporal) Resp 14 Ht 175.3 cm (5' 9) Wt 112.9 kg (249 lb) SpO2 99% BMI 36.77 kg/m? Physical Exam Constitutional: General: He is not in acute distress. Appearance: Normal appearance. He is obese. He is not ill-appearing, toxic-appearing or diaphoretic. HENT: Head: Normocephalic and atraumatic. Right Ear: Tympanic membrane, ear canal and external ear normal. Left Ear: Tympanic membrane, ear canal and external ear normal. Nose: Nose normal. Mouth/Throat: Mouth: Mucous membranes are moist. Pharynx: Oropharynx is clear. Eyes: Extraocular Movements: Extraocular movements intact. Conjunctiva/sclera: Conjunctivae normal. Pupils: Pupils are equal, round, and reactive to light. Neck: Vascular: No carotid bruit. Cardiovascular: Rate and Rhythm: Normal rate and regular rhythm. Pulses: Normal pulses. Heart sounds: Normal heart sounds. No murmur heard. Pulmonary: Effort: Pulmonary effort is normal. No respiratory distress. Breath sounds: Normal breath sounds. No stridor. No wheezing, rhonchi or rales. Chest: Chest wall: No tenderness. Abdominal: General: Bowel sounds are normal. Palpations: Abdomen is soft. Musculoskeletal: Cervical back: Normal range of motion and neck supple. No rigidity or tenderness. Comments: Left hip tenderness and decreased ROM Lymphadenopathy: Cervical: No cervical adenopathy. Skin: General: Skin is warm and dry. Capillary Refill: Capillary refill takes less than 2 seconds. Neurological: General: No focal deficit present. Mental Status: He is alert and oriented to person, place, and time. Psychiatric: Mood and Affect: Mood normal. Behavior: Behavior normal. Thought Content: Thought content normal. Judgment: Judgment normal. Assessment and Plan ASSESSMENT/PLAN: 1. Preoperative evaluation to rule out surgical contraindication - ICD9: V72.83, ICD10: Z01.818 (primary diagnosis) Presurgical testing does not reveal any significant abnormalities. EKG is sinus rhythm without signs of ischemia. Patient denies any chest pain, pressure, palpitations, or shortness of breath. Patient is medically optimized for surgery. 2. Gout, unspecified cause, unspecified chronicity, unspecified site - ICD9: 274.9, ICD10: M10.9 Obtain labs below - ALLOPURINOL 300 MG TABLET - URIC ACID BLOOD 3. Hypertension, benign - ICD9: 401.1, ICD10: I10 - good control - Continue current medication(s) - Recommended regular aerobic exercise. - Recommend home blood pressure monitoring, to bring results in on next visit - Goal of BP <130/80 - OLMESARTAN 20 MG TABLET Patient to schedule wellness exam with Dr. Chandler. Susanna Larry APRN.[facility] Evaluation + Plan note Note Date & Type Note Facility Evaluation + Plan note Future Appointments Appointment Date:04/17/2022 09:00:00 AM Scheduled Provider: Location:[facility] Appointment Type:PT Outpatient Evaluation [facility] Evaluation note Note Date & Type Note Facility Evaluation note No assessment information availa [facility] Work Phone: Hospital course Narrative Note Date & Type Note Facility Hospital course Narrative No data available for this section [facility] Hospital Discharge instructions Note Date & Type Note Facility Hospital Discharge instructions No data available for this section [facility] Progress note Note Date & Type Note Facility Progress note No data available for this section [facility] Reason for referral (narrative) Note Date & Type Note Facility Reason for referral (narrative) No reason for referral information available [facility] Work Phone: Summary Purpose Family History No Family History Records FoundNo Family History Records FoundNo Family History Records FoundNo Family History Records Found Advance Directives Advance Directive Response Recorded Date/ Time Do you have a Healthcare Power of Testing And Regulating Chief? Yes November 02, 2024 12:38pm Chief Complaint and Reason for Visit Chief Complaint RUQ PAIN Chief Complaint RUQ PAIN FATTY CHANGE OF LIVER Chief Complaint RUQ PAIN FATTY CHANGE OF LIVER MORBID OBESITY Chief Complaint FATTY CHANGE OF LIVE R MORBID OBESITY MORBID OBESITY Chief Complaint MORBID OBESITY Chief Complaint FATTY LIVER Chief Complaint Admit Date lac November 02, 2024 12:2 3pm Chief Complaint Admit Date lac November 02, 2024 12:2 3pm [place] NON DOT DRUG & BAT/PORTS PETROLEUM Ju ne 2024 2:46pm Additional Source Comments (unrecognized sect ion and content) No Status Records FoundNo Status Records FoundNo Status Records FoundNo Status Records Found INFORMATION SOURCE (unrecogn ized section and content) DATE CREATED AUTHOR 10/02/2020 [facility] DATE CREATED AUTHOR AUTHOR'S ORGANIZ ATION 04/07/2022 [facility] DATE CREATED AUTHOR AUTHOR'S ORGANIZ ATION 04/20/2022 [facility] ([place]) DATE CREATED AUTHOR AUTHOR'S ORGANIZ ATION 08/25/2024 [facility] Care Team (unrecognized sect ion and content) Care Team Personnel Name: ANDRIY CHANDLER MD Member Role: Primary Care Physician Address: Address: [address] [place] [phone] [place] Care Teams (unrecognized sec tion and content) Team Status: Active Member Role Status Dates Andriy IBARRA Family Provider Active Dr. Andriy Chandler MD Primary Care Provider Active Team Status: Inactive Member Role Status Dates Dr. Ben Cameron MD Attending Provider Active Dr. Andriy Chandler MD Primary Care Provider Active Team Status: Inactive Member Role Status Dates Dr. Andriy Chandler MD Primary Care Provider Active Dr. Ben Cameron MD Attending Provider, Referring Pr ovider Active Team Status: Active Member Role Status Dates Andriy IBARRA Family Provider Active Dr. Ben Cameron MD Primary Care Provider Active Team Status: Active Member Role Status Dates Dr. Ben Cameron MD Primary Care Provi rebecca, Attending Provider, Referring Provider Active Team Status: Inactive Member Role Status Dates Dr. Ben Cameron MD Primary Care Provi rebecca, Attending Provider, Referring Provider Active Team Status: Inactive Member Role Status Dates Dr. Ben Cameron MD Primary Care Provider, Attending Provider Active Team Status: Inactive Member Role Status Dates Dr. Ben Cameron MD Primary Care Provider Active Start: August 18, 2024 End: August 18, 2024 Dr. Ben Cameron MD Attending Provider Active Start: August 18, 2024 End: August 18, 2024 Dr. Ben Cameron MD Referring Provider Active Start: August 18, 2024 End: August 18, 2024 Team Status: Active Member Role Status Dates Dr. Ben Cameron MD Primary Care Provider Active Team Status: Inactive Member Role Status Dates Dr. Ben Cameron MD Primary Care Provider Active Start: November 02, 2024 End: November 02, 2024 Dr. Jony Coulter DO Emergency Provider Active Start : November 02, 2024 End: November 02, 2024 Team Status: Inactive Member Role Status Dates Dr. Ben Cameron MD Primary Care Provider Active Start: November 02, 2024 End: November 02, 2024 Dr. Ben Cameron MD Referring Provider Active Start: November 02, 2024 End: November 02, 2024 Vijay PAYNE, PA Attending Provider Active Sta rt: November 02, 2024 End: November 02, 2024 Goals (unrecognized section and content) Goals may be documented in a n alternate section FOR RECORDS PERTAINING TO PATIENTS WHO ARE OR HAVE BEEN ENROLLED IN A CHEMICAL DEPENDENCY/SUBSTANCEABUSE PROGRAM, SOME INFORMATION MAY BE OMITTED. This clinical summary was aggregated from multiple sources. Caution should be exercised in using it in the provision of clinical care. This summary normalizes information from multiple sources, and as a consequence, information in this document may materially change the coding, format and clinical context of patient data. In addition, data may be omitted in some cases. CLINICAL DECISIONS SHOULD BE BASED ON THE PRIMARY CLINICAL RECORDS. [facility] provides no warranty or guarantee of the accuracy or completeness of information in this document.
== END 2024-11-02 14:31 | disposition home or self-care (01) ==
PROVIDERS: Emergency Provider Emergency Medicine; PCP Family Medicine Geriatric Medicine; Visit Provider Emergency Medicine
DX: S61.211A Laceration without foreign body of left index finger without damage to nail, initial encounter (principal); Z23 Encounter for immunization; W26.8XXA Contact with other sharp object(s), not elsewhere classified, initial encounter; Y99.0 Civilian activity done for income or pay
CPT/HCPCS: 12002; 73130; 90715; 99283

== ENCOUNTER 2024-11-27 13:30 | Outpatient (RCR) | payer OTHER, SELFPAY ==
[2024-11-20 13:55] VITALS: BP 132/83; PULSE 53; RESP 18; TEMP 36.8; BMI 26.6
--- NOTE | 2024-11-20 16:07 | WC ---
PHOTO 11/20/24 LEFT INDEX FINGER
--- NOTE | 2024-11-21 07:18 | HP.PCM_ITS ---
History of Present Illness Date of Service: 11/20/24 History of Wound: The patient is a 58-year-old male presenting with a partial thickness wound on the volar aspect of the left index finger. The injury occurred on November 02 when the patient was drilling a hole in a piece of steel, resulting in a laceration. The wound initially had two flaps, with one flap showing partial thickness eschar necrosis. The patient works in maintenance, frequently handling diesel fuel and gasoline, and wears gloves during work. He was advised to avoid lifting with the affected finger and to perform light duty work. The wound was debrided during the visit, and the necrotic tissue was removed, revealing healthy tissue at the base. ROS - Integumentary: Reports partial thickness wound on the left index finger. - Musculoskeletal: Denies any other injuries or pain. Attestation: Documentation on this patient encounter was supported using ambient scribe technology/ voice AI technology. The patient consented to recording for the purpose of documenting the encounter. Provider reviewed content of the generated note prior to signature. [facility] Medical History Hip replacement planned Spinal stenosis Hearing problem Gout Back problem Allergies Home Medications ?Medication ?Instructions ?Recorded ?Last Taken ?Type NK 11/02/24 Unknown History Allergy/AdvReac Type Severity Reaction Status Date / Time No Known Allergies Allergy Verified 11/20/24 13:55 Family History Other Diabetes Heart disease Surgical History Previous back surgery h/o endolymphatic shunt surgery Social History Smoking Status: Never smoker alcohol intake: current Vital Signs Vital Signs Vital Signs: 11/20/24 13:55 Temperature 98.2 F Temperature Source Temporal Pulse Rate 53 L Respiratory Rate 18 Blood Pressure 132/83 H Blood Pressure Mean 99 Blood Pressure Source Monitor Blood Pressure Position Semi-Fowlers Blood Pressure Location Left Arm Oxygen Delivery Method Room Air Weight Weight: 180 lb Body Mass Index (BMI) 26.6 Physical Exam Narrative Left Upper Extremity Inspection: Healing volar left index finger laceration with two flaps, one with partial thickness eschar necrosis. Most of the fingertip skin is viable over the critical structures. Palpation: No fluid collections Motor: Able to bend and extend all MP, PIP, and DIP joints. Sensory: Intact to light touch on the radial and ulnar borders. Vascular: Finger tips are warm and well perfused with greater than 2 second capillary refill. Debridement Note Debridement Note Wound debrided: Left index finger wound Laterality: Left Wound Grade/Stage: 3 Type of Debridement: Excisional debridement Anesthesia Used: 4% Lidocaine Solution and - (7 cc of lidocaine 1% for a digital block ) Depth: in the subcutaneous layer Percentage of wound debrided: 100 Instrument Used: #15 blade and Forceps Tissue Removed: Necrotic skin and fat Severity: Fat Layer Exposed Amount of bleeding with debridement: Moderate Bleeding Controlled with: Compression and gauze Patient tolerated procedure: Patient tolerated procedure well Post-Debridement Measurements and Additional Note: Post-Debridement Measurements/Treatment - Nurse 1 - General Ulcer Assessment Start: 11/20/24 13:55 Freq: Status: Active Protocol: CAROL Activity Type Activity Date Activity User E-sign Co-sign Detail Recorded Client Recorded Date Recorded By Document 11/20/24 13:55 [id number] 11/20/24 13:59 11/20/24 13:55 - Today's Visit Information Type of service Initial Visit Arrival Mode Ambulatory Patient Identification Verified (Name & Yes ) Height and Weight Height 5 ft 9 in Weight 180 lb Weight in Pounds 180.0 lbs Body Mass Index (BMI) 26.6 BMI Classification Overweight Vital Signs Temperature (97.8 F-99.1 F) 98.2 F Temperature Source Temporal Pulse Rate (60-100) 53 L Pulse Location Monitor Respiratory Rate (12-18) 18 Respiratory rate source Observation Oxygen Delivery Method Room Air Blood Pressure (90/60-120/80) 132/83 H Blood Pressure Mean 99 Source Monitor Position Semi-Fowlers Blood Pressure Location Left Arm History Since Last Visit- (Skip if this is Patient's initial visit) Have you changed medications since your No last visit? Any new allergies or adverse reactions No Had a fall/change in ADL's that may No increase risk of falls Signs or symptoms of abuse and/or No neglect since last visit Have you been in the hospital since your No last visit? Has dressing in place as prescribed Yes Has compression in place as prescribed N/A Has offloadiing in place as prescribed N/A Experienced any changes in pain level or No management Left Footwear Regular Shoe Right Footwear Regular Shoe Pain Scale: 0-10 Numeric Is Patient Pain Free? No left index -Description Aching Communication Assessment Preferred language [employer] Rental Clerk Required No Able to Read Yes Able to Write Yes Communication Tools None Caregiver Communication Skills No Impairment Impairment Right Hearing Abillity Normal Left Hearing Abillity Normal Visual Assistive Devices Glasses Teaching Assessment Preferences Verbal Barriers to Learning None Readiness To Learn Excellent Willingness to Engage in Self Management High Activies Readiness to Engage in Self Management High Activities Anxiety Level Calm Cooperation Cooperative Perception Coherent Interest in Health Problem Asks Questions Education Importance Acknowledges Need Does Patient Smoke tobacco or other No substances Smoking Status Never smoker Is Patient Diabetic No Functional Assessment Recent Decline in Ability to Perform Denies Any Declines Culture/Cheondoism/Credentialing Specialist Cultural/Cheondoism Needs that may affect No Treatment Plan Would you allow our [facility] bilingual manager to No meet you for the purpose of spiritual/ emotional support? Credentialing Specialist to contact place of religious No WC - Nurse 1 - General Ulcer Measurement Start: 11/20/24 13:55 Freq: Status: Active Protocol: Activity Type Activity Date Activity User E-sign Co-sign Detail Recorded Client Recorded Date Recorded By Document 11/20/24 13:55 [id number] 11/20/24 13:59 KW 11/20/24 13:55 Wound Center Nurse 1 #1 left index finger -Current Size (cm) - Length 0.1 -Current Size (cm) - Width 0.1 -Current Size (cm) - Depth 0 -Total Square Cm 0.01 -Date of Last Picture (Recall this 11/20/24 field) -Exudate Amt None Present -Wound Margin Well Defined, Not Attached -Granulation Amt None Present (0 %) -Necrosis Amt None Present (0 %) -Texture (Zunilda-wound Skin Appearance) Assessed -Moisture (Zunilda-wound Skin Appearance) Assessed -Color (Zunilda-wound Skin Appearance) Assessed, Ecchymosis -Temperature (Zunilda-wound Skin No Abnormality Appearance) (Pt Warm) -Tenderness on Palpation (Zunilda-wound No Skin Appearance) -Ulcer Cleansing Rinsed/ Irrigated with Saline -Foul Odor after Cleansing No -Wound Comment(s) about 9 intact sutures WC - Nurse 2 - General Ulcer CM Notes Start: 11/20/24 13:55 Freq: Status: Active Protocol: Activity Type Activity Date Activity User E-sign Co-sign Detail Recorded Client Recorded Date Recorded By Document 11/20/24 14:21 JF [id number] 11/20/24 14:27 JF 11/20/24 14:21 Wound Center Nurse 2 -Time 14:22 -Correct Patient Yes -Correct Side, Site, Position Yes -Correct Procedure Yes -Procedure Performed Yes -Type of Procedure Debridement -Clinical Debridement Subcutaneous -Tissue Removed Subcutaneous -Post Debridement (cm) - Length 1.5 -Post Debridement (cm) - Width 2.0 -Post Debridement (cm) - Depth 0.2 -Total Square (Post) (cm) 3.00 -Area of Debridement (cm) - Length 1.5 -Area of Debridement (cm) - Width 2.0 -Total Square (Area) (cm) 3.00 -Tunneling No -Undermining/Tunneling No -Circular Undermining No -Wound/Ulcer Outcome Not Healed -Ulcer Cleansing Rinsed/ Irrigated with Saline -Foul Odor after Cleansing No -Bioengineered Tissue No -Bleeding Controlled with Pressure -Treatment Response Procedure Tolerated Well -Offloading No -Debridement - Subq, 1st 20sq cm Yes Pain Scale: 0-10 Numeric Is Patient Pain Free? Yes - Nurse 3 - General Ulcer D/C NN Start: 11/20/24 13:55 Freq: Status: Active Protocol: Activity Type Activity Date Activity User E-sign Co-sign Detail Recorded Client Recorded Date Recorded By Document 11/20/24 14:43 DL [id number] 11/20/24 14:44 DL 11/20/24 14:43 Wound Care Center Nurse 3 #1 left index finger -Ulcer Cleansing Rinsed/ Irrigated with Saline -Foul Odor after Cleansing No -Other Dressing Xeroform -Primary Dressing Covered/Secured with Dry Gauze,Other -Other Covering Coban Pain Scale: 0-10 Numeric Is Patient Pain Free? Yes - Visit Discharge Discharge Condition Stable Ambulatory Status Ambulatory Transportation Private Auto Charges/Coding Procedures Integumentary [id number]: [id number] Christy subq tissue 20 sq cm/< Assessment/Plan Assessment/Plan (1) Laceration of left index finger w/o foreign body w/o damage to nail: CODE(S): S61.211A - Laceration without foreign body of left index finger without damage to nail, initial encounter (2) Encounter for examination required by Department of Transportation (DOT): CODE(S): Z02.89 - Encounter for other administrative examinations PLAN: Plan Assessment and Plan The 58-year-old male with a history of a partial thickness wound on the volar aspect of the left index finger presented for wound management. The wound, resulting from a drilling accident on November 02, showed partial thickness eschar necrosis on one of the two flaps. The debridement performed during the visit revealed healthy tissue at the base, indicating a positive prognosis for healing. 1. Partial Thickness Wound On The Volar Aspect Of The Left Index Finger The patient is advised to perform 10-minute Dial soap soaks twice daily, followed by the application of zero form gauze to promote healing. The wound should be kept clean, and the patient should avoid lifting with the affected finger to prevent further injury. Follow-up is scheduled in one week to assess healing progress. - Perform 10-minute Dial soap soaks twice daily. - Apply zero form gauze after each soak. - Avoid lifting with the affected finger. - Keep the wound clean and dry. - Return for follow-up in one week.
[2024-11-27 13:12] VITALS: BP 130/82; PULSE 57; RESP 18; TEMP 35.8; BMI 26.6
--- NOTE | 2024-11-28 07:38 | PN.PCM_ITS ---
History of Present Illness Date of Service: 11/27/24 History of Wound: The patient is a 58-year-old male presenting with a partial thickness wound on the volar aspect of the left index finger. The injury occurred on November 02 when the patient was drilling a hole in a piece of steel, resulting in a laceration. The wound initially had two flaps, with one flap showing partial thickness eschar necrosis. The patient works in maintenance, frequently handling diesel fuel and gasoline, and wears gloves during work. He was advised to avoid lifting with the affected finger and to perform light duty work. The wound was debrided during the visit, and the necrotic tissue was removed, revealing healthy tissue at the base. ROS - Integumentary: Reports partial thickness wound on the left index finger. - Musculoskeletal: Denies any other injuries or pain. Attestation: Documentation on this patient encounter was supported using ambient scribe technology/ voice AI technology. The patient consented to recording for the purpose of documenting the encounter. Provider reviewed content of the generated note prior to signature. Subjective Subjective Current Encounter, 27 November 2024: The patient is a 58-year-old male presenting with a wound on the left index finger. The wound is healing well, with a current size of approximately 1 x 1 cm, and robust tissue covering the bone. The patient reports joint stiffness in the left index finger, attributed to scar tissue. Attestation: Documentation on this patient encounter was supported using ambient scribe technology/ voice AI technology. The patient consented to recording for the purpose of documenting the encounter. Provider reviewed content of the generated note prior to signature. Objective Data Objective Data Vital Signs: Vital Signs Temp Pulse Resp BP O2 Del Method 96.4 F L 57 L 18 130/82 H Room Air 11/27/24 13:12 11/27/24 13:12 11/27/24 13:12 11/27/24 13:12 11/27/24 13:12 Oxygen Delivery Method Room Air Weight: 180 lb Body Mass Index (BMI) 26.6 Charges/Coding Procedures Integumentary 111xxx-113xx: [id number] Christy subq tissue 20 sq cm/< Physical Exam Narrative Left Upper Extremity Inspection: Healing volar left index finger wound, down to subcutaneous tissue with good coverage over the bone. Palpation: No fluid collections Motor: Able to bend and extend all MP, PIP, and DIP joints. Sensory: Intact to light touch on the radial and ulnar borders. Vascular: Finger tips are warm and well perfused with greater than 2 second capillary refill. Debridement Note Debridement Note Wound debrided: Left index finger Laterality: Left Wound Grade/Stage: Stage III Type of Debridement: Excisional debridement Anesthesia Used: 4% Lidocaine Solution Depth: in the subcutaneous layer Percentage of wound debrided: 100 Instrument Used: Forceps and - (And a scissors for sharp excision) Tissue Removed: Fibrinous exudate and necrotic fat at the base of the wound Severity: Fat Layer Exposed Amount of bleeding with debridement: Mild Bleeding Controlled with: Compression and gauze Patient tolerated procedure: Patient tolerated procedure well Post-Debridement Measurements and Additional Note: Post-Debridement Measurements/Treatment WC - Nurse 1 - General Ulcer Assessment Start: 11/20/24 13:55 Freq: Status: Active Protocol: CAROL Activity Type Activity Date Activity User E-sign Co-sign Detail Recorded Client Recorded Date Recorded By Document 11/20/24 13:55 [id number] 11/20/24 13:59 KW Document 11/27/24 13:12 [id number] 11/27/24 13:22 KW 11/20/24 11/27/24 13:55 13:12 - Today's Visit Information Type of service Initial Visit Follow-up Visit (Physician/REVIEW CONSULTANT ) Arrival Mode Ambulatory Ambulatory Patient Identification Verified (Name & Yes Yes ) Height and Weight Height 5 ft 9 in Weight 180 lb Weight in Pounds 180.0 lbs Body Mass Index (BMI) 26.6 26.6 BMI Classification Overweight Overweight Vital Signs Temperature (97.8 F-99.1 F) 98.2 F 96.4 F L Temperature Source Temporal Temporal Pulse Rate (60-100) 53 L 57 L Pulse Location Monitor Monitor Respiratory Rate (12-18) 18 18 Respiratory rate source Observation Observation Oxygen Delivery Method Room Air Room Air Blood Pressure (90/60-120/80) 132/83 H 130/82 H Blood Pressure Mean (mm Hg) 99 98 Source Monitor Monitor Position Semi-Fowlers Sitting Blood Pressure Location Left Arm Right Arm History Since Last Visit- (Skip if this is Patient's initial visit) Have you changed medications since your No No last visit? Any new allergies or adverse reactions No No Had a fall/change in ADL's that may No No increase risk of falls Signs or symptoms of abuse and/or No No neglect since last visit Have you been in the hospital since your No No last visit? Has dressing in place as prescribed Yes Yes Has compression in place as prescribed N/A N/A Has offloadiing in place as prescribed N/A N/A Experienced any changes in pain level or No No management Left Footwear Regular Shoe Regular Shoe Right Footwear Regular Shoe Regular Shoe Pain Scale: 0-10 Numeric Is Patient Pain Free? No Yes left index -Description Aching Communication Assessment Preferred language Ukrainian Electrical Intern Required No Able to Read Yes Able to Write Yes Communication Tools None Caregiver Communication Skills No Impairment Impairment Right Hearing Abillity Normal Left Hearing Abillity Normal Visual Assistive Devices Glasses Teaching Assessment Preferences Verbal Barriers to Learning None Readiness To Learn Excellent Willingness to Engage in Self Management High Activies Readiness to Engage in Self Management High Activities Anxiety Level Calm Cooperation Cooperative Perception Coherent Interest in Health Problem Asks Questions Education Importance Acknowledges Need Does Patient Smoke tobacco or other No substances Smoking Status Never smoker Is Patient Diabetic No Functional Assessment Recent Decline in Ability to Perform Denies Any Declines Culture/Anabaptist/Medical Management Trainer Cultural/Anabaptist Needs that may affect No Treatment Plan Would you allow our hospital derrick barge operator to No meet you for the purpose of spiritual/ emotional support? Medical Management Trainer to contact place of druze No WC - Nurse 1 - General Ulcer Measurement Start: 11/20/24 13:55 Freq: Status: Active Protocol: Activity Type Activity Date Activity User E-sign Co-sign Detail Recorded Client Recorded Date Recorded By Document 11/20/24 13:55 [id number] 11/20/24 13:59 Document 11/27/24 13:12 [id number] 11/27/24 13:22 11/20/24 11/27/24 13:55 13:12 Wound Center Nurse 1 #1 left index finger -Current Size (cm) - Length 0.1 1.5 -Current Size (cm) - Width 0.1 1.2 -Current Size (cm) - Depth 0 0.2 -Total Square Cm 0.01 1.80 -Date of Last Picture (Recall this 11/20/24 11/27/24 field) -Exudate Amt None Present Medium -Exudate Type Serosanguineous -Wound Margin Well Defined, Distinct, Not Attached Outline Attached -Granulation Amt None Present (0 None Present (0 %) %) -Necrosis Amt None Present (0 Large (67-100%) %) -Necrotic Tissue Type Adherent Slough -Texture (Zunilda-wound Skin Appearance) Assessed Assessed -Moisture (Zunilda-wound Skin Appearance) Assessed Assessed -Color (Zunilda-wound Skin Appearance) Assessed, Assessed Ecchymosis -Temperature (Zunilda-wound Skin No Abnormality No Abnormality Appearance) (Pt Warm) (Pt Warm) -Tenderness on Palpation (Zunilda-wound No No Skin Appearance) -Ulcer Cleansing Rinsed/ Rinsed/ Irrigated with Irrigated with Saline Saline -Foul Odor after Cleansing No No -Anesthetic Used 5% Lidocaine Gel -Wound Comment(s) about 9 intact sutures WC - Nurse 2 - General Ulcer CM Notes Start: 11/20/24 13:55 Freq: Status: Active Protocol: Activity Type Activity Date Activity User E-sign Co-sign Detail Recorded Client Recorded Date Recorded By Document 11/20/24 14:21 JF [id number] 11/20/24 14:27 Document 11/27/24 13:40 DS [id number] 11/27/24 13:41 DS 11/20/24 11/27/24 14:21 13:40 Wound Center Nurse 2 #1 left index finger -Time 14:22 13:40 -Correct Patient Yes Yes -Correct Side, Site, Position Yes Yes -Correct Procedure Yes Yes -Procedure Performed Yes Yes -Type of Procedure Debridement Debridement -Clinical Debridement Subcutaneous Subcutaneous -Tissue Removed Subcutaneous Subcutaneous -Post Debridement (cm) - Length 1.5 1.0 -Post Debridement (cm) - Width 2.0 1.0 -Post Debridement (cm) - Depth 0.2 0.1 -Total Square (Post) (cm) 3.00 1.00 -Area of Debridement (cm) - Length 1.5 1.0 -Area of Debridement (cm) - Width 2.0 1.0 -Total Square (Area) (cm) 3.00 1.00 -Tunneling No No -Undermining/Tunneling No No -Circular Undermining No No -Wound/Ulcer Outcome Not Healed Not Healed -Ulcer Cleansing Rinsed/ Irrigated with Saline -Foul Odor after Cleansing No No -Bioengineered Tissue No No -Bleeding Controlled with Pressure Pressure -Treatment Response Procedure Procedure Tolerated Well Tolerated Well -Offloading No -Debridement - Subq, 1st 20sq cm Yes Yes Pain Scale: 0-10 Numeric Is Patient Pain Free? Yes Yes - Nurse 3 - General Ulcer D/C NN Start: 11/20/24 13:55 Freq: Status: Active Protocol: Activity Type Activity Date Activity User E-sign Co-sign Detail Recorded Client Recorded Date Recorded By Document 11/20/24 14:43 DL [id number] 11/20/24 14:44 DL Document 11/27/24 13:57 DS [id number] 11/27/24 14:01 DS 11/20/24 11/27/24 14:43 13:57 Wound Care Center Nurse 3 #1 left index finger -Ulcer Cleansing Rinsed/ Irrigated with Saline -Foul Odor after Cleansing No -Other Dressing Xeroform xeroform, coban -Primary Dressing Covered/Secured with Dry Gauze,Other Dry Gauze, Secured with Tape -Other Covering Coban Pain Scale: 0-10 Numeric Is Patient Pain Free? Yes Yes WC - Visit Discharge Discharge Condition Stable Stable Ambulatory Status Ambulatory Ambulatory Transportation Private Auto Private Auto Assessment/Plan Assessment/Plan (1) Laceration of left index finger w/o foreign body w/o damage to nail: CODE(S): S61.211A - Laceration without foreign body of left index finger without damage to nail, initial encounter (2) Encounter for examination required by Department of Transportation (DOT): CODE(S): Z02.89 - Encounter for other administrative examinations PLAN: Plan Assessment and Plan The patient is a 58-year-old male with a history of a left index finger wound presenting for follow-up. The wound is healing well, with robust tissue formation and adequate bone coverage, indicating positive progress. The patient also experiences joint stiffness due to scar tissue, which limits movement and causes significant pain. 1. Left Index Finger Wound The patient will continue with Xeroform dressings twice daily and soak the wound for five minutes once a day at night. The Xeroform dressing is intended to debride the wound as it adheres, promoting further healing. Follow-up is scheduled in one week to assess healing progress. 2. Joint Stiffness The patient is advised to perform regular exercises to improve joint flexibility and reduce stiffness. Referral to hand therapy is considered for additional exercise guidance. - Continue using Xeroform dressings twice daily. - Soak the wound for five minutes once a day at night. - Perform exercises regularly to improve joint flexibility. - Consider attending hand therapy for additional exercise guidance. - Follow up in one week for progress assessment.
--- NOTE | 2024-11-28 09:40 | WC ---
PHOTO 11/27/24 LEFT INDEX
== END 2024-12-07 23:59 | disposition home or self-care (01) ==
LOC: WC 13:30
PROVIDERS: PCP Family Medicine Geriatric Medicine; Referring Provider Surgery Plastic and Reconstructive Surgery; Visit Provider Surgery Plastic and Reconstructive Surgery
DX: S61.211A Laceration without foreign body of left index finger without damage to nail, initial encounter (principal); Z02.89 Encounter for other administrative examinations; X58.XXXA Exposure to other specified factors, initial encounter; Y99.0 Civilian activity done for income or pay
CPT/HCPCS: 11042; 99213; G0463